=== PATIENT | female | born 1985 | race Caucasian/White ===

== ENCOUNTER 2024-02-12 18:49 | Outpatient (CLI) | payer BC, SELFPAY ==
[2024-02-19 15:34] LABS: Anti Mullerian Hormone (AMH) 7.72
== END 2024-02-12 23:59 ==
LOC: LAB.DROPOF 18:49
PROVIDERS: PCP Obstetrics & Gynecology; Visit Provider Obstetrics & Gynecology
DX: E28.2 Polycystic ovarian syndrome (principal)
CPT/HCPCS: 82397

== ENCOUNTER 2024-02-19 15:45 | Outpatient (CLI) | payer BC, SELFPAY ==
[2024-02-19 16:50] LABS: Hemoglobin A1C 5.1 % (4.0-6.0)
[2024-02-20 10:19] LABS: Rapid Plasma Reagin Ab Titer Non Reactive titer (NonRea<1:1); Rubella Antibodies, IgG 1.96 index (Immune >0.99); Varicella Zoster IgG 534 index (Immune >165)
[2024-02-20 18:10] LABS: HIV Screen 4th Generation wRfx Non Reactive (Non Reactive)
[2024-02-21 09:46] LABS: Hepatitis B Surface Antigen Negative
[2024-02-21 09:47] LABS: Hepatitis C Antibody Non Reactive
== END 2024-02-19 23:59 ==
PROVIDERS: Visit Provider Obstetrics & Gynecology
DX: Z31.69 Encounter for other general counseling and advice on procreation (principal)
CPT/HCPCS: 83036; 86593; 86703; 86762; 86787; 86850; 87340; 87380; G0432

== ENCOUNTER 2024-11-21 09:50 | Outpatient (CLI) | payer BC, SELFPAY ==
--- NOTE | 2024-11-21 10:02 | US_ITS ---
PROCEDURE: US TRANSVAGINAL CLINICAL INDICATION: Follicle Scan COMPARISON: No exams were available for comparison FINDINGS: Transvaginal sonographic images of the pelvis were obtained. UTERUS: 6.1 cm x 3.9 cmx 2.6 cm anteverted with a combined endometrial thickness of 2.1mm. LEFT OVARY: 3.7 cmx3.0cmx2.1cm with a volume of 12.2ml. The left ovary appears polycystic with multiple small peripheral follicles. Follicle 1. 0.67 cm Follicle 2. 0.82 cm Follicle 3. 0.65 cm Follicle 4. 0.48 cm Follicle 5. 0.52 cm Follicle 6. 0.61 cm Follicle 7. 0.65 cm Follicle 8. 0.48 cm Follicle 9. 0.56 cm Follicle 10. 0.60 cm Follicle 11. 0.44 cm Follicle 12. 0.86 cm Follicle 13. 0.63 cm Follicle 14. 0.62 cm Follicle 15. 0.81 cm Follicle 16. 0.69 cm RIGHT OVARY: 3.9 cmx 2.9 cmx1.8 cm with a volume of 10.7ml. Follicle 1. 0.51 cm Follicle 2. 0.79 cm Follicle 3. 0.29 cm Follicle 4. 0.57 cm Follicle 5. 0.46 cm Follicle 6. 0.34 cm Follicle 7. 0.47 cm Follicle 8. 0.82 cm Follicle 9. 0.53 cm Follicle 10. 0.38 cm Follicle 11. 0.61 cm Follicle 12. 0.70 cm Follicle 13. 0.40 cm Follicle 14. 0.43 cm Follicle 15. 0.58 cm There is a cyst within the right ovary that has internal echoes. It measures 6.0 cm x 3.5 cm x 4.9 cm There are 2 mural nodules consistent with Rokitansky nodules. Likely dermoid cyst. Both ovaries are seen and appear polycystic. Doppler flow to both ovaries are seen. There is no fluid in the cul-de-sac. IMPRESSION: 1. Anteverted uterus normal in shape and size. The endometrium is thin measuring 2.1 mm. 2. Both ovaries are seen and appear polycystic. There are multiple follicles on each ovary. 3. Within the right ovary is a 6 cm cyst with internal echoes and 2 Rokitansky nodules. Appears to be a dermoid cyst. 4. No fluid in the cul-de-sac. Dictated by: Niko Grissom MD 11/22/2024 07:59 Niko Grissom MD in OV 11/22/2024 07:59
[2024-11-21 10:31] LABS: Hematocrit 38.6 % (37.0-47.0); Mean Corpuscular HGB Conc 33.7 g/dL (31.8-35.4); Mean Corpuscular Hemoglobin 31.6 pg (27.0-31.2); Mean Corpuscular Volume 93.7 fl (81-99); Red Blood Count 4.12 M/mm3 (4.20-5.40); Red Cell Distribution Width 11.1 % (11.5-17.5); White Blood Count 4.7 K/mm3 (4.8-10.8)
[2024-11-21 10:32] LABS: Lymphocytes % 43.6 % (10-50); Mean Platelet Volume 9.6 fl (7.4-10.4); Monocytes % 6.3 % (1.7-9.3); Platelet Count 338 K/mm3 (142-424)
[2024-11-21 10:38] LABS: Basophils # 0.1 K/mm3 (0-0.2); Basophils % 1.1 % (0.1-2.0); Eosinophils # 0.2 K/mm3 (0.0-0.4); Lymphocytes # 2.1 K/mm3 (0.7-4.5); Monocytes # 0.3 K/mm3 (0.1-1.0); Neutrophils # 2.1 K/mm3 (1.8-7.8)
[2024-11-21 11:06] LABS: Alanine Aminotransferase 17 U/L (12-78); Albumin Level 4.2 g/dl (3.5-5.0); Albumin/Globulin Ratio 1.9 (1.1-1.8); Alkaline Phosphatase 44 U/L (38-126); Aspartate Amino Transferase 26 U/L (14-36); Bilirubin,Total 0.6 mg/dl (0.2-1.3); Blood Urea Nitrogen 14 mg/dl (7-17); Calcium 9.4 mg/dl (8.4-10.2); Carbon Dioxide 28 mmol/L (22.0-30.0); Chloride 107 mmol/L (98-107); Estimated Glomerular Filt Rate 80 ml/min (>60); GFR (African American) 97 ML/MIN (>60); Globulin 2.2 g/dL (1.3-3.2); Glucose 71 mg/dl (74-100); Sodium 138 mmol/L (136-145); Total Protein,Serum 6.4 g/dl (6.3-8.2)
[2024-11-21 11:08] LABS: Anion Gap 7.2 mEq/L (5-15); Potassium 4.2 mmoL/L (3.5-5.1)
[2024-11-21 11:44] LABS: Thyroid Stimulating Hormone 1.17 uIU/mL (0.465-4.68)
[2024-11-22 08:12] LABS: Estradiol 54.1 pg/mL (.); FSH 7.4 mIU/mL (.); LH 13.5 mIU/mL (.); Progesterone 0.3 ng/mL (.)
[2024-11-27 23:07] LABS: Anti Mullerian Hormone (AMH) 11.3 ng/mL (.)
== END 2024-11-21 23:59 | disposition home or self-care (01) ==
PROVIDERS: Visit Provider Obstetrics & Gynecology
DX: N93.9 Abnormal uterine and vaginal bleeding, unspecified (principal); N92.6 Irregular menstruation, unspecified; E28.9 Ovarian dysfunction, unspecified; Z31.69 Encounter for other general counseling and advice on procreation
CPT/HCPCS: 36415; 76830; 80050; 80053; 82397; 82670; 83001; 83002; 84144; 84443; 85025; 86850

== ENCOUNTER 2025-04-20 15:47 | Outpatient (CLI) | payer BC, SELFPAY ==
--- NOTE | 2025-04-20 15:50 | US_ITS ---
PROCEDURE: US OB <= 14 WEEKS FETUS CLINICAL INDICATION: MONITOR EARLY BEFORE 8 WEEKS COMPARISON: US US TRANSVAGINAL from 11/21/2024 FINDINGS: Transvaginal sonographic images of the pelvis were obtained. From her last menstrual period she is 6weeks 4days. An intrauterine gestational sac is present with a pole with a crown-rump length of 0.6cm This correlates to a gestational age of 6weeks 3days. PHILL 12/10/2025 heart tones are present with an FHR of 123bpm. Yolk sac is noted. The yolk sac measures 5.0mm. The right ovary is seen. There is a complex cyst adjacent to the right ovary measuring 4.7 cm x 3.7 cm. It contains echogenic fluid as well as solid areas, likely Rokitansky nodules. Patient is known to have a dermoid cyst. The left ovary is seen and appears normal. There appears to be a 1.6 cm corpus luteum in the left ovary. There is no fluid in the cul-de-sac. IMPRESSION: 1. Viable embryo within the uterine cavity. There is a heart rate activity. 2. PHILL will remain 12/10/2025. 3. The right ovary contains a 4.7 cm complex cyst that is known to be a dermoid. The left ovary contains a corpus luteum. 4. No fluid in the cul-de-sac. Dictated by: Niko Grissom MD 04/20/2025 19:19 Niko Grissom MD in OV 04/20/2025 19:19
== END 2025-04-20 23:59 | disposition home or self-care (01) ==
LOC: RAD 15:48
PROVIDERS: PCP Obstetrics & Gynecology Reproductive Endocrinology; Visit Provider Obstetrics & Gynecology Reproductive Endocrinology
DX: O99.891 Other specified diseases and conditions complicating pregnancy (principal); O34.81 Maternal care for other abnormalities of pelvic organs, first trimester; D27.0 Benign neoplasm of right ovary; N83.12 Corpus luteum cyst of left ovary; Z3A.01 Less than 8 weeks gestation of pregnancy
CPT/HCPCS: 76801

== ENCOUNTER 2025-04-27 15:34 | Outpatient (CLI) | payer BC, SELFPAY ==
--- NOTE | 2025-04-27 15:37 | US_ITS ---
PROCEDURE: US OB <= 14 WEEKS FETUS CLINICAL INDICATION: MONITOR EARLY BEFORE 14 WEEKS COMPARISON: US US TRANSVAGINAL from 11/21/2024 US US OB <= 14 WEEKS FETUS from 04/20/2025 FINDINGS: Transvaginal sonographic images of the pelvis were obtained. From her last menstrual period she is 7weeks 4days. An intrauterine gestational sac is present with a pole with a crown-rump length of 1.47cm This correlates to a gestational age of 7weeks 6days. PHILL will remain 12/08/2025 heart tones are present with an FHR of 167bpm. Yolk sac is noted. The yolk sac measures 6.1mm. The right ovary is seen and appears enlarged. The right ovary is enlarged measuring 5.6 cm x 3.4 cm x 5.0 cm. She is known to have a dermoid cyst and there are Rokitansky nodules seen within the complex mass in the right ovary. There continues to be particulate matter within the cyst. The left ovary is seen and appears normal. There is a resolving corpus luteum. There is no fluid in the cul-de-sac. IMPRESSION: 1. Viable embryo within the uterine cavity. There has been good interval growth in the last week. Heart rate activity is seen. Average ultrasound age 7 weeks 6 days PHILL will remain 12/08/2025. 2. The left ovary contains a resolving corpus luteum. The right ovary is enlarged contains a dermoid cyst. 3. No fluid in the cul-de-sac. Dictated by: Niko Grissom MD 04/27/2025 20:23 Niko Grissom MD in OV 04/27/2025 20:23
== END 2025-04-27 23:59 | disposition home or self-care (01) ==
LOC: RAD 15:35
PROVIDERS: PCP Obstetrics & Gynecology Reproductive Endocrinology; Visit Provider Obstetrics & Gynecology Reproductive Endocrinology
DX: O99.891 Other specified diseases and conditions complicating pregnancy (principal); O34.81 Maternal care for other abnormalities of pelvic organs, first trimester; D27.0 Benign neoplasm of right ovary; N83.12 Corpus luteum cyst of left ovary; Z3A.01 Less than 8 weeks gestation of pregnancy
CPT/HCPCS: 76801

== ENCOUNTER 2025-05-05 15:47 | Outpatient (CLI) | payer BC, SELFPAY ==
--- OUTSIDE RECORDS SUMMARY | 2025-05-05 15:49 | XMS_ITS | Clinical Summary ---
Author Organization [facility] Address [address] [place] [id number] Care Team Providers Care Band Saw Marker Name Role Phone Pcp, No Primary Care Provider [phone] Source Comments This information has been disclosed to you from confidential records protectedfrom disclosure by state law. You shall make no further disclosure of thisinformation without the specific, written, and informed release of theindividual to whom it pertains, or as otherwise permitted by law. A generalauthorization for the release of medical or other information is not sufficientfor the purposes of therelease of HIV test results or diagnoses. [id number] Allergies No known active allergies Medications vit,calc76/iro n/folic (PNV 29-1 ORAL) Take by mouth. Acti ve coenzyme Q-10 30 mg capsule Take 1 capsule (30 mg total) by mouth 3 times a day. Active vit B complex no.12/niacin,B 3, (VITAMIN B COMPLEX NO.12-NIACIN ORAL) Take by mouth. Activ e melatonin 1 mg Tab Take by mouth. Activ e vitamin E 200 UNIT capsule Take 1 capsule (200 Units total) by mouth daily. Active ascorbic acid, vitamin C, (VITAMIN C) 100 MG tablet Take 1 tablet (100 mg total) by mouth daily. Active sertraline (ZOLOFT) 50 MG tablet Take 1 tablet (50 mg total) by mouth daily. Active follitropin beta (FOLLISTIM AQ) 300 unit/0.36 mL Crtg Inject 100 Units subcutaneously daily. 2.52 mL 2 4 Active ganirelix 250 mcg/0.5 mL Syrg Inject 250 mcg subcutaneously daily. 3 mL 2 4 Active busPIRone (BUSPAR) 10 MG tablet Take 1 tablet (10 mg total) by mouth 2 times a day. Active menotropins (MENOPUR) 75 unit SolR Inject subcutaneously. Active INOSITOL ORAL Take by mouth. A ctive alpha lipoic acid 50 mg Cap Take by mouth. Active cetrorelix (CETROTIDE) 0.25 mg Kit Inject subcutaneously. Active cabergoline (DOSTINEX) 0.5 mg tablet Take 1 tablet (0.5 mg total) by mouth daily. 8 tablet 4 Active estradioL (ESTRACE) 2 MG tablet Take 1 tablet (2 mg total) by mouth in the morning and at bedtime. 60 tablet 3 4 Active letrozole (FEMARA) 2.5 mg tablet Take 2 tablets (5 mg total) by mouth daily. 10 tablet 4 Active progesterone (PROMETRIUM) 200 MG capsule Insert 400 mg vaginally every 12 hours. 60 capsule 3 4 Active enoxaparin (LOVENOX) 40 mg/0.4 mL Syrg Inject 0.4 mLs (40 mg total) subcutaneously daily. 12 mL 3 4 Active doxycycline (MONODOX) 100 MG capsule Take 1 capsule (100 mg total) by mouth 2 times a day. 10 capsule 4 Active letrozole (FEMARA) 2.5 mg tablet Take 2 tablets (5 mg total) by mouth daily. 10 tablet 4 Active letrozole (FEMARA) 2.5 mg tablet Take 3 tablets (7.5 mg total) by mouth daily. 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 [x] Type & Screen (09/23/22 from [facility] records) [x] ABO/ABS (02/19/2024) [x] CBC (11/27/2023) [x] CMP (11/27/2023) [x] AMH (02/12/2024-7.72) [x] Prolactin 13.8 (11/27/2023) [x] TSH: 1.24 Free T4: 1.12 (11/27/2023) [x] HgbA1c (02/19/2024-5.1) [x] Rubella/varicella (02/19/2024) [x] STDs (02/19/2024) [x] Cavity assessment (Waived per Dr. Shelley SIS 10/29/22 at [facility] wn) [x] TT 03/11/2024 (Depth: 7.5 Position: RV Comments: Need stylet) Partner: Nathan Bui : 08/14/1981 [x] STDs negative x 4 (02/24/2024) [x] Genetics-scanned into chart [x] Embryo onsite Social History Tobacco Use Types Packs/Day Years Used Date Smoking Tobacco: Never Smokeless Tobacco: Never Tobacco Cessation:Counseling Given: Not Answered Alcohol Use Standard Drinks/Week Comments Not Currently 0 (1 standard drink = 0.6 oz pur e alcohol) Comments No Sex and Gender Information Value Date Recorded Sex Assigned at Not on file Legal Sex Female 4:16 PM EST Gender Identity Not on file Sexual Orientation Not on file Last Filed Vital Signs Vital Sign Reading Time Taken Comments Blood Pressure 124/78 08/30/2024 8:33 AM EDT Pulse 80 08/30/2024 8:33 AM EDT Temperature 36.5 C (97.7 F) 03/20/2024 8:58 AM EDT Respiratory Rate 14 03/22/2024 9:30 AM EDT Oxygen Saturation 99% 08/30/2024 8:33 AM EDT Inhaled Oxygen Concentration 99% 08/30/2024 8 :33 AM EDT Weight 66.2 kg (146 lb) 08/30/2024 8:33 AM EDT Height 172.7 cm (5' 8 ) 08/30/2024 8:33 AM EDT Body Mass Index 22.2 08/30/2024 8:33 AM EDT Plan of Treatment Health Maintenance Due Date Last Done Comments Hepatitis C Screening ([facility]) 1986 Depression Screening 02/05/2004 Cervical Cancer Screening/Pa p Smear (MyChart) 02/05/2016 Immunization: DTaP/Tdap/Td ( 3 - Td or Tdap) 07/21/2018 07/21/2008, 11/09/2002 Immunization: COVID-19 ( season) 2024 Immunization: Influenza (MyChart) (Season Ended) 2025 Immunization: Hepatitis B Completed 2002, 02/09/2003, 11/09/2002 HIV Screening Completed 02/19/2024 Immunization: Pneumococcal Aged Out N o longer eligible based on patient's age to complete this topic Procedures Procedure Name Priority Date/Time Associated Diagnosis Comments HIV AB, HIV 1/2, EIA, WITH REFLEXES Routine 02/19/2024 from Last 3 Months or Most Recently Relevant to Health Maintenance Results * HIV AB, HIV 1/2, EIA, with Reflexes (02/19/2024) HIV 1/2 EIA Ab Screen NR us Historical Provider LAB BLOOD ORDERABLES Naomi l Result from Last 3 Months or Most Recently Relevant to Health Maintenance Insurance Care Teams Band Saw Marker Relationship Specialty Start Date End Date Pcp, No No Address PCP - General 01/04/24
--- OUTSIDE RECORDS SUMMARY | 2025-05-05 15:49 | XMS_ITS | Encounter Summary ---
Author Organization [place] [address] Care Team Providers Care Cellular Equipment Repairer Name Role Phone Yessy Black Primary Care Provider [phone] Larissa Butler LCSW Unavailable Unavailable Reason for Visit * Reason Onset Date Comments Paperwork/forms 12/14/2024 Encounter Details Date Type Department Care Team (Late Contact Info) Description 12/14/2024 Telephone [facility] [address] [place] [address] Sarah Morales, DO [address] [place] [address] Paperwork/forms Social History Tobacco Use Types Packs/Day Years Used Date Smoking Tobacco: Former Cigarettes 0.3 12.7 0 11/30/1999 - 07/31/2012 Passive Smoke Exposure: Past Smokeless Tobacco: Never Alcohol Use Standard Drinks/Week Comments Not Currently 0 (1 standard drink = 0.6 oz pur e alcohol) 1x/mo [facility] Utilities Answer Date Recorded In the past 12 months has [employer], gas, oil, or water company threatened to shut off services in your home? No 02/02/2024 Social Connection and Isolat ion Panel [NHANES] Answer Date Recorded In a typical week, how many times do you talk on the phone with family, friends, or neighbors? More than three times a week 02/02/2024 How often do you get togethe r with friends or relatives? More than three times a week 02/02/2024 How often do you attend [facility] or oriental orthodox services? More than 4 times per year 02/02/2024 Do you belong to any clubs o r organizations such as mu-ism groups, unions, fraternal or athletic groups, or school groups? No 02/02/2024 How often do you attend meet ings of the clubs or organizations you belong to? Never 02/02/2024 Are you , , di vorced, , never , or living with a partner? 02/02/2024 AUDIT-C Answer Date Recorded Q1: How often do you have a drink containing alcohol? Never 02/02/2024 Q2: How many drinks containi ng alcohol do you have on a typical day when you are drinking? Patient does not drink Q3: How often do you have si x or more drinks on one occasion? Never 02/02/2024 Overall Financial Resource Strain (CARDIA) Answe r Date Recorded How hard is it for you to pa y for the very basics like food, housing, medical care, and heating? Not hard at all 02/02/2024 PHQ-2 Answer Date Recorded PHQ-2 Total Score 3 02/02/2024 [facility] - Occupational Stress Questionnaire Answer Date Recorded Do you feel stress - tense, restless, nervous, or anxious, or unable to sleep at night because your mind is troubled all the time - these days? Very much 02/02/2024 Exercise Vital Sign Answer Date Recorde d On average, how many days pe r week do you engage in moderate to strenuous exercise (like a brisk walk)? 5 days 02/02/2024 On average, how many minutes do you engage in exercise at this level? 30 min 02/02/2024 Hunger Vital Sign Answer Date Recorded Within the past 12 months, y ou worried that your food would run out before you got the money to buy more. Never true 02/02/20 24 Within the past 12 months, t he food you bought just didn't last and you didn't have money to get more. Never true 02/02/2024 PRAPARE - Transportation Answer Date Re corded In the past 12 months, has l ack of transportation kept you from medical appointments or from getting medications? No 03/2024 In the past 12 months, has l ack of transportation kept you from meetings, work, or from getting things needed for daily living? No 02/02/2024 Housing Stability Vital Sign Answer Jeovany e Recorded In the last 12 months, was t here a time when you were not able to pay the mortgage or rent on time? No 02/02/2024 In the last 12 months, how many places have you lived? 1 02/02/2024 In the last 12 months, was t here a time when you did not have a steady place to sleep or slept in a residential (including now)? No 02/02/2024 Sexually Active Control Partners Comments Yes Male Comments No Sex and Gender Information Value Date Recorded Sex Assigned at Not on file Legal Sex Female 7:19 AM EDT Gender Identity Not on file Sexual Orientation Not on file documented as of this encounter Functional Status * Is the person deaf or does he/she have serious difficulty hearing? Answer Date of Assessment Author No 01/19/2024 2:36 PM Mihai Estrada LPN * Is the person blind or does he/she have serious difficulty seeing even when wearing glasses? Answer Date of Assessment Author No 01/19/2024 2:36 PM Mihai Estrada LPN * Does this person have serious difficulty walking or climbing stairs? Answer Date of Assessment Author No 01/19/2024 2:36 PM Mihai Estrada LPN * Does this person have difficulty dressing or bathing? Answer Date of Assessment Author No 01/19/2024 2:36 PM Mihai Estrada LPN * Because of a physical, mental or emotional condition, does this person have difficulty doing errands alone such as visiting a doctor's office or shopping? Answer Date of Assessment Author No 01/19/2024 2:36 PM Mihai Estrada LPN documented as of this encounter Mental Status * Because of a physical, mental or emotional condition, does this person have serious difficulty concentrating, remembering or making decisions? Answer Entry Date Author No 01/19/2024 2:36 PM Mihai Estrada LPN documented in this encounter Miscellaneous Notes * Telephone Encounter - Chato Denton RN - 05/02/2025 3:57 PM EDT [place] nothing else concerning pt's job and paperwork, I went ahead and shredded form. If needed in the future, pt can supply another form to us. * Telephone Encounter - Yessy Black DO - 12/26/2024 1:45 PM EST noted * Telephone Encounter - Chato Denton RN - 12/23/2024 9:44 AM EST Pt replied to my message. She states that she is still working and will let us know if she needs form completed in the upcoming future. I will keep pt's paperwork at my desk ready to be completed if she needs it. * Telephone Encounter - Chato Denton RN - 12/23/2024 8:32 AM EST I sent pt another [employer] message asking for dates so that I can work on her paperwork. * Telephone Encounter - Chato Denton RN - 12/14/2024 1:31 PM EST Received FMLA/STD (which?) received from pt's employer by fax. Sent pt a [employer] message asking her to send to me the specific start date/stop date for the time off of work that she feels she currently needs. documented in this encounter Plan of Treatment Not on file documented as of this encounter Goals Goal Patient Goal Type Associated Problems Recent Progress Patient-Stated? Author Maintain a healthy diet, exercise regularly and maintain an ideal body weight General No Elvia Morales MD Stay Tobacco Free Lifestyle No Elvia Morales MD documented as of this encounter Visit Diagnoses Not on filedocumented in this encounter Additional Health Concerns Assessment Noted Time PHQ-9 Depression Total Score: 16 024 1:27 PM EST PHQ-2 Depression Total Score: 3 02/02/20 24 1:27 PM EST documented as of this encounter Care Teams Cellular Equipment Repairer Relationship Specialty Start Date End Date Yessy Black DO [address] [place] [address] PCP - General Family Medicine 08/11/23 Larissa Butler LCSW Electrical Fitter 12/13/24 12/26/24 documented as of this encounter
--- OUTSIDE RECORDS SUMMARY | 2025-05-05 15:49 | XMS_ITS | Clinical Summary ---
Author Organization [facility] Address [address] [place] [address] Phone Care Team Providers Care Inker Name Role Phone Yessy Black DO Primary Care Provider [phone] Allergies No known active allergies Medications vit no.124/iron/foli c ( VITAMIN ORAL) Take 1 Tablet by mouth daily. Active VITAMIN B COMPLEX ORAL Take 1 Tablet by mouth daily. Active VITAMIN E, BULK, MISC Take 200 Units by mouth daily. Active ascorbic acid, vitamin C, (VITAMIN C) 100 mg Oral Tablet Take 100 mg by mouth daily. Active Melatonin 1 mg Oral Tablet Take 1 Tablet by mouth nightly. Active co-enzyme Q-10 30 mg Oral Capsule Take 30 mg by mouth daily. Active sertraline (ZOLOFT) 50 mg Oral TabletIndication s:Mild episode of recurrent major depressive disorder TAKE 1 TABLET BY MOUTH EVERY DAY 30 Tablet 11/14/2024 Active busPIRone (BUSPAR) 10 mg Oral TabletIndication s:Other social stressor,Anxiety Take 1 Tablet by mouth 2 times daily. 180 Tablet 2 12/12/2024 Active Active Problems Patient Care Coordination No te Formatting of this note migh t be different from the original. Care gap audit completed by Alicia Panda RN on 10/08/2023. Problem Noted Date Diagnosed Date Dysmenorrhea 01/01/2024 Procreative management 01/01/2024 Sensorineural hearing loss, unilateral, left ear, with unrestricted hearing on the contralateral side 02/19/2018 Abnormal auditory perception of right ear 2017 Mild episode of recurrent major depressive disor zak 04/30/2011 Immunizations Immunization Administration Dates Next Due Hepatitis B, Ped/Adol 07/05/2003,02/09/2003,10/30 MMR 06/12/1997 Td (Adult), Absorbed 11/09/2002 Tdap 07/21/2008 Surgical History Surgery Date Site/Laterality Comments WISDOM TOOTH EXTRACTION 09/2011 Medical History Medical History Date Comments Depression Family History Medical History Relation Name Comments Substance Abuse Brother 1 Carlos heroin OD Alcohol Abuse Brother 2 Ariel Alcohol Abuse Brother 3 Guillermo testicular cancer Brother 3 Guillermo Alcohol Abuse Father Atrial fibrillation Father Heart Disease Father CABG Leukemia Father High Cholesterol Mother Hypertension Mother Kidney Disease Mother CKD 3 Substance Abuse Mother crack, cocai ne Thyroid Disease Mother Alcohol Abuse Sister 1 María in remission Substance Abuse Sister 1 María in remission Substance Abuse Sister 2 Nasreen hepatitis C Sister 2 Nasreen Substance Abuse Sister 3 Kylie Thyroid Disease Sister 3 Kylie Relation Name Status Comments Brother 1 Carlos (Age 25) Brother 2 Ariel Alive half brother Brother 3 Guillermo Alive Father Alive Maternal Grandfather Maternal Grandmother Mother Alive Paternal Grandfather Paternal Grandmother Sister 1 María Alive Sister 2 Nasreen Alive Sister 3 Kylie Alive half sister Social History Tobacco Use Types Packs/Day Years Used Date Smoking Tobacco: Former Cigarettes 0.3 12.7 0 11/30/1999 - 07/31/2012 Passive Smoke Exposure: Past Smokeless Tobacco: Never Tobacco Cessation:Counseling Given: Not Answered Alcohol Use Standard Drinks/Week Comments Not Currently 0 (1 standard drink = 0.6 oz pur e alcohol) 1x/mo [facility] Utilities Answer Date Recorded In the past 12 months has [employer], [employer], oil, or water [employer] threatened to shut off services in your [...] week 02/02/2024 How often do you attend [facility] or islam services? More than 4 times per year 02/02/2024 Do you belong to any clubs o r organizations such as anabaptism groups, unions, fraternal or athletic groups, or [...] Date Recorded PHQ-2 Total Score 3 02/02/2024 [facility] - Occupational [...] place to sleep or slept in a chcf (including now)? No 02/02/2024 Sexually Active Control Partners Comments Yes Male Comments No Sex and Gender Information Value Date Recorded Sex Assigned at Not on file Legal Sex Female 7:19 AM EDT Gender Identity Not on file Sexual Orientation Not on file Obstetrics History Last Filed Vital Signs Vital Sign Reading Time Taken Comments Blood Pressure 110/80 02/16/2024 9:41 AM EDT Pulse 62 02/16/2024 9:41 AM EDT Temperature 36.2 C (97.1 F) 02/16/2024 9:41 AM EDT Respiratory Rate 16 01/19/2024 2:38 PM EST Oxygen Saturation 98% 02/16/2024 9:41 AM EDT Inhaled Oxygen Concentration - - Weight 65.9 kg (145 lb 3.2 oz) 02/16/2024 9:41 A M EDT Height 172.7 cm (5' 8 ) 02/16/2024 9:41 AM EDT Body Mass Index 22.08 02/16/2024 9:41 AM EDT Plan of Treatment Health Maintenance Due Date Last Done Comments HPV/Pap Cotest 02/05/2016 DTaP/TDaP/Td (3 - Td or Tdap) 07/21/2018, 11/09/2002 Annual Wellness Exam 10/22/2023 10/22/2022, 05/18/2015 COVID-19 Vaccine (2023-2 5 season) 2024 Influenza Vaccine (Season Ended) 2025 Cervical Cancer Screening 10/14/2026 Pap Smear 10/14/2026 10/14/2023, 12/13/2020, 04/30/2013 Hepatitis B Vaccine Completed 07/05/2003, 02/09/2003, 11/09/2002 Meningococcal B Vaccine Aged Out No l onger eligible based on patient's age to complete this topic Pneumococcal Vaccine 0-49 Aged Out No longer eligible based on patient's age to complete this topic Goals Goal Patient Goal Type Associated Problems Recent Progress Patient-Stated? Author Maintain a healthy diet, exercise regularly and maintain an ideal body weight General No Elvia Morales MD Stay Tobacco Free Lifestyle No Evlia Morales MD Procedures Procedure Name Priority Date/Time Associated Diagnosis Comments PAP SMEAR Routine 12/13/2020 from Last 3 Months or Most Recently Relevant to Health Maintenance Results * PAP SMEAR (12/13/2020) 12/13/2020 Impressions SEP OFFICE - 12/13/2020 Negative for intraepithelial lesion or malignancy. us [facility] Provider HEALTH MAINTENANCE Final Res ult SEP OFFICE from Last 3 Months or Most Recently Relevant to Health Maintenance Insurance [employer] PPO [employer] PPO Care Teams Inker Relationship Specialty Start Date End Date Yessy Black DO [address] [place] [address] PCP - General Family Medicine 08/11/23
--- NOTE | 2025-05-05 15:52 | US_ITS ---
PROCEDURE: US OB TRANSVAGINAL CLINICAL INDICATION: MONITOR EARLY COMPARISON: US US TRANSVAGINAL from 11/21/2024 US US OB <= 14 WEEKS FETUS from 04/20/2025 US US OB <= 14 WEEKS FETUS from 04/27/2025 FINDINGS: Transvaginal sonographic images of the pelvis were obtained. From her last menstrual period she is 8weeks 5days. An intrauterine gestational sac is present with a pole with a crown-rump length of 2.36cm This correlates to a gestational age of 9weeks 1day. PHILL 12/07/2025. heart tones are present with an FHR of 179bpm. Yolk sac is noted. The yolk sac measures 7.8 mm. The right ovary is seen. Within the right ovary is a dermoid cyst measuring 6.1 cm x 3.3 cm x 4.9 cm. There are Rokitansky nodules. There is particulate matter within the cyst. The left ovary is seen and appears normal. There continues to be a collapsing corpus luteum in the left ovary. There are multiple small peripheral follicles. There is no fluid in the cul-de-sac. IMPRESSION: 1. Viable embryo within the uterine cavity. Heart rate activity is seen. 2. [place]-rump length is 9 weeks 1 day and her PHILL will remain 12/10/2025. 3. There continues to be a large dermoid cyst in the right ovary. It has not grown appreciably in size. 4. No fluid in the cul-de-sac. Dictated by: Niko Grissom MD 05/05/2025 18:44 Niko Grissom MD in OV 05/05/2025 18:44
== END 2025-05-05 23:59 | disposition home or self-care (01) ==
LOC: RAD 15:48
PROVIDERS: PCP Obstetrics & Gynecology Reproductive Endocrinology; Visit Provider Obstetrics & Gynecology Reproductive Endocrinology
DX: O99.891 Other specified diseases and conditions complicating pregnancy (principal); D27.0 Benign neoplasm of right ovary; Z3A.08 8 weeks gestation of pregnancy
CPT/HCPCS: 76817

== ENCOUNTER 2025-05-10 15:04 | Outpatient (CLI) | payer BC, SELFPAY ==
--- OUTSIDE RECORDS SUMMARY | 2025-05-10 15:07 | XMS_ITS | Clinical Summary ---
Author Organization [facility] Address [address] [place] [address] Phone Care Team Providers Care Glove Parts Cutter Name Role Phone Yessy Black DO Primary Care Provider [phone] Allergies No known active allergies Medications vit [...] = 0.6 oz pur e alcohol) 1x/mo [place] Utilities Answer Date Recorded In the past 12 months has [employer], [employer], oil, or water [employer] threatened to shut off services in your [...] week 02/02/2024 How often do you attend [facility] or rastafari services? More than 4 times per year 02/02/2024 Do you belong to any clubs o r organizations such as zoroastrianism groups, unions, fraternal or athletic groups, or [...] Date Recorded PHQ-2 Total Score 3 02/02/2024 [facility] of Occupat ional Health - Occupational Stress [...] place to sleep or slept in a detention (including now)? No 02/02/2024 Sexually Active Control [...] Tobacco Free Lifestyle No Elvia Morales MD Procedures Procedure Name Priority Date/Time Associated Diagnosis Comments PAP SMEAR Routine 12/13/2020 from Last 3 Months or Most Recently Relevant to Health Maintenance Results * PAP SMEAR (12/13/2020) 12/13/2020 Impressions SEP OFFICE - 12/13/2020 Negative for intraepithelial lesion or malignancy. us [facility] Provider HEALTH MAINTENANCE Final Res ult SEP OFFICE from Last 3 Months or Most Recently Relevant to Health Maintenance Insurance [employer] PPO [employer]UTISTA PPO Care Teams Glove Parts Cutter Relationship Specialty Start Date End Date Yessy Black DO [address] [place] [address] PCP - General Family Medicine 08/11/23
--- OUTSIDE RECORDS SUMMARY | 2025-05-10 15:07 | XMS_ITS | Clinical Summary ---
Author Organization [facility] Address [address] [place] [address] Care Team Providers Care Black Ash Burner Operator Name Role Phone Pcp, No Primary Care Provider [phone] Source Comments This information has been disclosed [...] therelease of HIV test results or diagnoses. 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 [x] Type & Screen (09/23/22 from [facility] records) [x] ABO/ABS (02/19/2024) [x] CBC (11/27/2023) [x] CMP (11/27/2023) [x] AMH (02/12/2024-7.72) [x] Prolactin 13.8 (11/27/2023) [x] TSH: 1.24 Free T4: 1.12 (11/27/2023) [x] HgbA1c (02/19/2024-5.1) [x] Rubella/varicella (02/19/2024) [x] STDs (02/19/2024) [x] Cavity assessment (Waived per Dr. Shelley SIS 10/29/22 at [facility] wn) [x] TT 03/11/2024 (Depth: 7.5 Position: [...] Relevant to Health Maintenance Insurance Care Teams Black Ash Burner Operator Relationship Specialty Start Date End Date Pcp, No No Address PCP - General 01/04/24
--- OUTSIDE RECORDS SUMMARY | 2025-05-10 15:07 | XMS_ITS | Encounter Summary ---
Author Organization [facility] [address] Care Team Providers Care Shop Director Name Role Phone Yessy Black Primary Care Provider [phone] Larissa Butler LCSW Unavailable Unavailable Reason for Visit * Reason Onset Date Comments Paperwork/forms 12/14/2024 Encounter Details Date Type Department Care Team (Late Contact Info) Description 12/14/2024 Telephone [facility] [address] [place] [address] Sarah Morales, DO [address] [place] [address] Paperwork/forms Social History Tobacco Use Types Packs/Day Years Used Date Smoking Tobacco: Former Cigarettes 0.3 12.7 0 11/30/1999 - 07/31/2012 Passive Smoke Exposure: Past Smokeless Tobacco: Never Alcohol Use Standard Drinks/Week Comments Not Currently 0 (1 standard drink = 0.6 oz pur e alcohol) 1x/mo [facility] Utilities Answer Date Recorded In the past 12 months has [employer] electric, gas, oil, or water company threatened [...] week 02/02/2024 How often do you attend [facility] or caodaism services? More than 4 times per year 02/02/2024 Do you belong to any clubs o r organizations such as judaism groups, unions, fraternal or athletic groups, or [...] Date Recorded PHQ-2 Total Score 3 02/02/2024 [facility] of Occupat ional Health - Occupational [...] place to sleep or slept in a fpc (including now)? No 02/02/2024 Sexually Active Control [...] Denton RN - 05/02/2025 3:57 PM EDT [place] nothing else concerning pt's job and paperwork, [...] 8:32 AM EST I sent pt another [employer] message asking for dates so that I can work on her paperwork. * Telephone Encounter - Chato Denton RN - 12/14/2024 1:31 PM EST Received FMLA/STD (which?) received from pt's employer by fax. Sent pt a [employer] message asking her to send to me [...] documented as of this encounter Care Teams Shop Director Relationship Specialty Start Date End Date Yessy Black DO [address] [place] [address] PCP - General Family Medicine 08/11/23 Larissa Butler LCSW Cubing Machine Tender 12/13/24 12/26/24 documented as of this encounter
--- NOTE | 2025-05-10 15:09 | US_ITS ---
PROCEDURE: US OB TRANSVAGINAL CLINICAL INDICATION: 10 WEEK US COMPARISON: US US TRANSVAGINAL from 11/21/2024 US US OB <= 14 WEEKS FETUS from 04/20/2025 US US OB <= 14 WEEKS FETUS from 04/27/2025 US US OB TRANSVAGINAL from 05/05/2025 FINDINGS: Transvaginal sonographic images of the pelvis were obtained. From her last menstrual period she is 9weeks 3days. An intrauterine gestational sac is present with a pole with a crown-rump length of 2.92cm This correlates to a gestational age of 9weeks 5days. heart tones are present with an FHR of 176bpm. Yolk sac is noted. The yolk sac measures 8.0mm. The right ovary is seen and appears normal. Continues to be a 5.8 cm dermoid cyst in the right ovary. Rokitansky nodules are seen. The fluid appears cloudy in contains particulate matter. The left ovary is seen and appears normal. There are multiple small follicles within the left ovary. There appears to be a collapsing corpus luteum in the left ovary. There is no fluid in the cul-de-sac. IMPRESSION: 1. Viable embryo within the uterine cavity. There has been good interval growth since her last ultrasound week ago. The size and dates are congruent with her last menstrual period. 2. A yolk sac is seen and measures 8.0 mm. 3. Amnion and chorion are now seen. 4. The left ovary contains multiple small follicles and likely a corpus luteum. 5. The right ovary continues to contain a 5.8 cm dermoid with a Rokitansky nodules and particulate cloudy fluid. Dictated by: Niko Grissom MD 05/10/2025 15:49 Niko Grissom MD in OV 05/10/2025 15:49
== END 2025-05-10 23:59 | disposition home or self-care (01) ==
LOC: RAD 15:05
PROVIDERS: PCP Obstetrics & Gynecology Reproductive Endocrinology; Visit Provider Obstetrics & Gynecology Reproductive Endocrinology
DX: O99.891 Other specified diseases and conditions complicating pregnancy (principal); O34.81 Maternal care for other abnormalities of pelvic organs, first trimester; D27.0 Benign neoplasm of right ovary; N83.02 Follicular cyst of left ovary; Z3A.09 9 weeks gestation of pregnancy
CPT/HCPCS: 76817

== ENCOUNTER 2025-05-24 10:00 | Outpatient (CLI) | payer BC, SELFPAY ==
--- OUTSIDE RECORDS SUMMARY | 2025-05-26 10:04 | XMS_ITS | Encounter Summary ---
Author Organization [place] [address] Care Team Providers Care Behavioral Health Aide Name Role Phone Yessy Black Primary Care Provider [phone] Larissa Butler LCSW Unavailable Unavailable Reason for Visit * Reason Onset Date Comments Paperwork/forms 12/14/2024 Encounter Details Date Type Department Care Team (Late Contact Info) Description 12/14/2024 Telephone [facility] [address] [place] [address] Sarah Morales, DO [address] [place] [address] Paperwork/forms Social History Tobacco Use Types Packs/Day Years Used Date Smoking Tobacco: Former Cigarettes 0.3 12.7 0 11/30/1999 - 07/31/2012 Passive Smoke Exposure: Past Smokeless Tobacco: Never Alcohol Use Standard Drinks/Week Comments Not Currently 0 (1 standard drink = 0.6 oz pur e alcohol) 1x/mo [facility] Utilities Answer Date Recorded In the past 12 months has [employer] electric, gas, oil, or water company threatened [...] How often do you attend [facility] or judaism services? More than 4 times per year 02/02/2024 Do you belong to any clubs o r organizations such as spiritism groups, unions, fraternal or athletic groups, or [...] Date Recorded PHQ-2 Total Score 3 02/02/2024 [facility] of Occupat ional Health - Occupational [...] Denton RN - 05/02/2025 3:57 PM EDT [place] nothing else concerning pt's job and paperwork, [...] 8:32 AM EST I sent pt another [employer] message asking for dates so that I can work on her paperwork. * Telephone Encounter - Chato Denton RN - 12/14/2024 1:31 PM EST Received FMLA/STD (which?) received from pt's employer by fax. Sent pt a [employer] message asking her to send to me [...] documented as of this encounter Care Teams Behavioral Health Aide Relationship Specialty Start Date End Date Yessy Black DO [address] [place] [address] PCP - General Family Medicine 08/11/23 Larissa Butler LCSW [place] 12/13/24 12/26/24 documented as of this encounter
--- OUTSIDE RECORDS SUMMARY | 2025-05-26 10:04 | XMS_ITS | Clinical Summary ---
Author Organization [facility] Address [address] [place] [address] Care Team Providers Care Financial Legal Assistant Name Role Phone Pcp, No Primary Care Provider [phone] Source Comments This information has been disclosed [...] therelease of HIV test results or diagnoses. 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 [x] Type & Screen (09/23/22 from [facility] records) [x] ABO/ABS (02/19/2024) [x] CBC (11/27/2023) [x] CMP (11/27/2023) [x] AMH (02/12/2024-7.72) [x] Prolactin 13.8 (11/27/2023) [x] TSH: 1.24 Free T4: 1.12 (11/27/2023) [x] HgbA1c (02/19/2024-5.1) [x] Rubella/varicella (02/19/2024) [x] STDs (02/19/2024) [x] Cavity assessment (Waived per Dr. Shelley SIS 10/29/22 at [facility] wn) [x] TT 03/11/2024 (Depth: 7.5 [...] Relevant to Health Maintenance Insurance Care Teams Financial Legal Assistant Relationship Specialty Start Date End Date Pcp, No No Address PCP - General 01/04/24
--- OUTSIDE RECORDS SUMMARY | 2025-05-26 10:04 | XMS_ITS | Clinical Summary ---
Author Organization [facility] Address [address] [place] [address] Phone Care Team Providers Care Environmental Health Physician Name Role Phone Yessy Black DO Primary Care Provider Allergies No known active allergies Medications vit [...] = 0.6 oz pur e alcohol) 1x/mo [employer] Utilities Answer Date Recorded In the past 12 months has [employer], [employer], oil, or water [employer] threatened to shut off services in your [...] week 02/02/2024 How often do you attend [facility] or yazidi services? More than 4 times per year 02/02/2024 Do you belong to any clubs o r organizations such as orthodoxy groups, unions, fraternal or athletic groups, or [...] Date Recorded PHQ-2 Total Score 3 02/02/2024 [facility] of Occupat ional Health - Occupational [...] place to sleep or slept in a senior care (including now)? No 02/02/2024 Sexually Active Control [...] Negative for intraepithelial lesion or malignancy. us [facility] Provider HEALTH MAINTENANCE Final Res ult SEP OFFICE from Last 3 Months or Most Recently Relevant to Health Maintenance Insurance [employer] PPO [employer]UTISTA PPO Care Teams Environmental Health Physician Relationship Specialty Start Date End Date Yessy Black DO [address] [place] [address] PCP - General Family Medicine 08/11/23
[2025-05-28 14:22] LABS: Neisseria gonorrhoeae, NAA Negative (Negative)
== END 2025-05-24 23:59 | disposition home or self-care (01) ==
LOC: LAB.DROPOF 05-26 10:00
PROVIDERS: PCP Obstetrics & Gynecology; Visit Provider Obstetrics & Gynecology
DX: Z34.81 Encounter for supervision of other normal pregnancy, first trimester (principal); Z3A.00 Weeks of gestation of pregnancy not specified
CPT/HCPCS: 87491; 87591

== ENCOUNTER 2025-05-30 14:43 | Outpatient (CLI) | payer BC, SELFPAY ==
--- OUTSIDE RECORDS SUMMARY | 2025-05-30 14:45 | XMS_ITS | Clinical Summary ---
Author Organization [facility] Address [address] [place] [address] Care Team Providers Care Kickboxing Instructor Name Role Phone Pcp, No Primary Care Provider [phone] Source Comments This information has been disclosed [...] therelease of HIV test results or diagnoses. 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 [x] Type & Screen (09/23/22 from [facility] records) [x] ABO/ABS (02/19/2024) [x] CBC (11/27/2023) [x] CMP (11/27/2023) [x] AMH (02/12/2024-7.72) [x] Prolactin 13.8 (11/27/2023) [x] TSH: 1.24 Free T4: 1.12 (11/27/2023) [x] HgbA1c (02/19/2024-5.1) [x] Rubella/varicella (02/19/2024) [x] STDs (02/19/2024) [x] Cavity assessment (Waived per Dr. Shelley SIS 10/29/22 at [facility] wn) [x] TT 03/11/2024 (Depth: 7.5 Position: [...] Relevant to Health Maintenance Insurance Care Teams Kickboxing Instructor Relationship Specialty Start Date End Date Pcp, No No Address PCP - General 01/04/24
--- OUTSIDE RECORDS SUMMARY | 2025-05-30 14:45 | XMS_ITS | Clinical Summary ---
Author Organization [facility] Address [address] [place] [address] Phone Care Team Providers Care Rand Maker Name Role Phone Yessy Black DO Primary Care Provider [phone] Allergies No known active allergies Medications vit [...] = 0.6 oz pur e alcohol) 1x/mo [employer] Utilities Answer Date Recorded In the past 12 months has [employer], [employer], oil, or water [email or web address] threatened to shut off services in your [...] How often do you attend [facility] or restoration services? More than 4 times per year 02/02/2024 Do you belong to any clubs o r organizations such as yarsani groups, unions, fraternal or athletic groups, or [...] Date Recorded PHQ-2 Total Score 3 02/02/2024 [facility] of Occupat ional Health - Occupational Stress [...] place to sleep or slept in a retirement (including now)? No 02/02/2024 Sexually Active Control [...] Negative for intraepithelial lesion or malignancy. us [facility] Provider HEALTH MAINTENANCE Final Res ult SEP OFFICE from Last 3 Months or Most Recently Relevant to Health Maintenance Insurance [employer] PPO [employer]UTISTA PPO Care Teams Rand Maker Relationship Specialty Start Date End Date Yessy Black DO [address] [place] [address] PCP - General Family Medicine 08/11/23
--- OUTSIDE RECORDS SUMMARY | 2025-05-30 14:45 | XMS_ITS | Encounter Summary ---
Author Organization [place] [address] Care Team Providers Care Glass Lined Tank Repairer Name Role Phone Yessy Black Primary Care Provider Larissa Butler LCSW Unavailable Unavailable Reason for Visit * Reason Onset Date Comments Paperwork/forms 12/14/2024 Encounter Details Date Type Department Care Team (Late st Contact Info) Description 12/14/2024 Telephone [facility] [address] [place] [address] Sarah Morales, DO [address] [place] [address] Paperwork/forms Social History Tobacco Use Types Packs/Day Years Used Date Smoking Tobacco: Former Cigarettes 0.3 12.7 0 11/30/1999 - 07/31/2012 Passive Smoke Exposure: Past Smokeless Tobacco: Never Alcohol Use Standard Drinks/Week Comments Not Currently 0 (1 standard drink = 0.6 oz pur e alcohol) 1x/mo [facility] Utilities Answer Date Recorded In the past 12 months has [employer] electric, gas, oil, or water company threatened [...] week 02/02/2024 How often do you attend [facility] or oriental orthodox services? More than 4 times per year 02/02/2024 Do you belong to any clubs o r organizations such as scientologist groups, unions, fraternal or athletic groups, or [...] Date Recorded PHQ-2 Total Score 3 02/02/2024 [facility] of Occupat ional Health - Occupational Stress [...] place to sleep or slept in a usp (including now)? No 02/02/2024 Sexually Active Control [...] Denton RN - 05/02/2025 3:57 PM EDT [place] nothing else concerning pt's job and paperwork, [...] 8:32 AM EST I sent pt another [employer] message asking for dates so that I can work on her paperwork. * Telephone Encounter - Chato Denton RN - 12/14/2024 1:31 PM EST Received FMLA/STD (which?) received from pt's employer by fax. Sent pt a [employer] message asking her to send to me [...] documented as of this encounter Care Teams Glass Lined Tank Repairer Relationship Specialty Start Date End Date Yessy Black DO [address] [place] [address] PCP - General Family Medicine 08/11/23 Lairssa Butler LCSW Harness Racing Handicapper 12/13/24 12/26/24 documented as of this encounter
--- NOTE | 2025-05-30 15:00 | US_ITS ---
PROCEDURE: US OB <= 14 WEEKS FETUS CLINICAL INDICATION: nuchal translucency COMPARISON: US US OB <= 14 WEEKS FETUS from 04/20/2025 US US OB <= 14 WEEKS FETUS from 04/27/2025 US US OB TRANSVAGINAL from 05/05/2025 US US OB TRANSVAGINAL from 05/10/2025 FINDINGS: Transabdominal sonographic images of the pelvis were obtained. The following parameters are obtained: From her established due date she is 12weeks 2days Viable fetus in the cephalic presentation with an anterior placenta grade 1. The cervix measures 3.34 cm heart rate: 164bpm bpm. The nuchal thickness measures 1.35-2.15 mm. AC: 12weeks 6days FL: 12weeks 5days FL/AC: 0.14 Amniotic fluid: Subjectively appears normal. MVP 4.05 cm No obvious anomalies evident. Both ovaries are seen. The right ovary measures 5.2 cm x 3.8 cm x 4.4 cm. There continues to be a dermoid cyst within the right ovary that has Rokitansky nodules. IMPRESSION: 1. Viable fetus in the cephalic presentation with an anterior placenta grade 1. 2. The fluid is within normal limits with an MVP 4.05 cm. 3. Nuchal translucency is measured between 1.35-2.15 mm. Normal less than 3.5 mm. 4. There has been good interval growth with the biometry consistent with the dates. 5. Very limited anatomical scan appears normal. 6. There continues to be a dermoid cyst in the right ovary. Dictated by: Niko Grissom MD 05/31/2025 12:06 Niko Grissom MD in OV 05/31/2025 12:06
[2025-05-30 15:52] LABS: Hematocrit 38.5 % (37.0-47.0); Hemoglobin 13.4 g/dL (12.2-16.2); Immature Granulocytes % 0.4 %; Mean Corpuscular HGB Conc 34.8 g/dL (31.8-35.4); Mean Corpuscular Hemoglobin 32.7 pg (27.0-31.2); Mean Corpuscular Volume 93.9 fl (81-99); Nucleated Red Blood Cells % 0 %; Platelet Count 378 K/mm3 (142-424); Red Blood Count 4.10 M/mm3 (4.20-5.40); Red Cell Distribution Width-SD 41.9 fL; White Blood Count 8.2 K/mm3 (4.8-10.8)
[2025-05-30 16:08] LABS: Albumin Level 3.9 g/dl (3.5-5.0); Chloride 102 mmol/L (98-107); Potassium 3.6 mmoL/L (3.5-5.1); Sodium 136 mmol/L (136-145)
[2025-05-30 16:10] LABS: Alanine Aminotransferase 12 U/L (12-78); Anion Gap 11.6 mEq/L (5-15); Aspartate Amino Transferase 23 U/L (14-36); Blood Urea Nitrogen 8 mg/dl (7-17); Carbon Dioxide 26 mmol/L (22.0-30.0); Creatinine,Serum 0.70 mg/dl (0.52-1.04); Estimated Glomerular Filt Rate 93 ml/min (>60); GFR (African American) 113 ML/MIN (>60)
[2025-05-30 16:11] LABS: Albumin/Globulin Ratio 1.3 (1.1-1.8); Alkaline Phosphatase 51 U/L (38-126); Bilirubin,Total 0.3 mg/dl (0.2-1.3); Calcium 8.9 mg/dl (8.4-10.2); Globulin 2.9 g/dL (1.3-3.2); Glucose 125 mg/dl (74-100); Total Protein,Serum 6.8 g/dl (6.3-8.2)
[2025-05-30 17:09] LABS: Hepatitis C Ab Qual. W/ RFX NEGATIVE (Negative)
[2025-05-31 05:09] LABS: Hepatitis B Surface Antigen Negative (Negative)
[2025-05-31 07:10] LABS: Rubella Antibodies, IgG 1.87 index (Immune >0.99)
[2025-06-01 07:27] LABS: RPR W/RFX Titers Nonreactive (Nonreactive)
== END 2025-05-30 23:59 | disposition home or self-care (01) ==
LOC: RAD 14:44
PROVIDERS: Visit Provider Obstetrics & Gynecology
DX: O99.891 Other specified diseases and conditions complicating pregnancy (principal); E28.9 Ovarian dysfunction, unspecified; D27.0 Benign neoplasm of right ovary; Z3A.12 12 weeks gestation of pregnancy; O09.811 Supervision of pregnancy resulting from assisted reproductive technology, first trimester
CPT/HCPCS: 36415; 76801; 80053; 80074; 85025; 86592; 86762; 86850; 87340; 87389

== ENCOUNTER 2025-09-21 16:37 | Outpatient (CLI) | payer BC, SELFPAY ==
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
--- OUTSIDE RECORDS SUMMARY | 2025-07-24 13:51 | XMS_ITS | Encounter Summary ---
Author Organization [facility] Address [address] [place] [address] Care Team Providers Care Facilities And Grounds Director Name Role Phone Provider, No Known Primary Care Provider Unavail able Reason for Referral * Diagnostic Imaging (Routine) - Closed Specialty Diagnoses / Procedures Referred By Contac t Referred To Contact Radiology Diagnoses Advanced maternal age, primigravida, antepartum Conceived by in vitro fertilization Procedures [facility] Diagnostic [place] Nasreen Melchor [address] [place] [address] Phone: tel: fax: [facility] US PER DIAG [facility] [address] [place] [address] Phone: tel: Referral ID Status Reason Start Date Expiration Date Visits Re quested Visits Authorized [id number] Closed 05/25/2025 08/24/2026 1 1 Reason for Visit * Diagnostic Imaging (Routine) - Closed Specialty Diagnoses / Procedures Referred By Contac t Referred To Contact Radiology Diagnoses Advanced maternal age, primigravida, antepartum Conceived by in vitro fertilization Procedures [facility] Nasreen Melchor [address] [place] [address] Phone: tel: fax: [facility] [address] [place] [address] Phone: tel: Referral ID Status Reason Start Date Expiration Date Visits Re quested Visits Authorized [id number] Closed 05/25/2025 08/24/2026 1 1 Encounter Details Date Type Department Care Team (Latest Contact Info) Description 07/24/2025 1:51 PM EDT - 07/24/2025 11:59 PM EDT Hospital Encounter [facility] [address] [place] [address] Nasreen Melchor, DO [address] [address] [place] [address] Advanced maternal age, primigravida, antepartum; Conceived by in vitro fertilization Discharge Disposition: Home or Self Care Social History Tobacco Use Types Packs/Day Years Used Date Smoking Tobacco: Never Smokeless Tobacco: Never Alcohol Use Standard Drinks/Week Comments Never 0 (1 standard drink = 0.6 oz pur e alcohol) Estimated Date of Delivery Comme nts Yes 12/09/2025 Date entered alf or to episode creation Sex and Gender Information Value Date Recorded Sex Assigned at Not on file Legal Sex Female 12:08 PM EDT Gender Identity Not on file Sexual Orientation Not on file documented as of this encounter Medications at Time of Discharge Calcium 200 MG tablet Take 1 tablet by mouth Daily. CHOLINE PO Take 500 mg by mouth Daily. co-enzyme Q-10 30 MG capsule Take 200 mg by mouth Daily. Cyanocobalamin (B-12) 1000 MCG tablet Take 1 tablet by mouth Daily. [place] 3 1200 MG capsule Take 1 tablet by mouth Daily. Vit-Fe Fumarate-FA ( vitamin 27-0.8) 27-0.8 MG tablet tablet Take 1 tablet by mouth Daily. Vitamin D, Cholecalciferol, (CHOLECALCIFEROL) 10 MCG (400 UNIT) tablet Take 1 tablet by mouth Daily. Vitamin E 200 units tablet Take 200 Units by mouth Daily. documented as of this encounter Plan of Treatment Not on file documented as of this encounter Procedures Procedure Name Priority Date/Time Associated Diagnosis Comments [facility] Routine 07/24/2025 2:49 PM EDT Advanced maternal age, primigravida, antepartum Conceived by in vitro fertilization documented in this encounter Results * [facility] (07/24/2025 2:49 PM EDT) Anatomical Region Laterality Modality Ultrasound 07/24/2025 2:20 PM EDT Narrative 07/24/2025 3:01 PM EDT PAT NAME: TAYLOR ÁLVAREZ MED REC#: [id number] DA: [id number] PAT GEND: F PAT TYPE: O EXAM SHIRLENE: [id number] REF PHYS NASREEN MELCHOR Comparison Studies There are no relevant prior studies to which this study is being compared Patient Status Outpatient Indication ======== IVF , AMA-primipara, Maternal Assessment Height 171 cm Height (ft) 5 ft Height (in) 7 in Weight 79 kg Weight (lb) 174 lb BMI 27.02 kg/m Method ======= Transabdominal ultrasound examination. View: Adequate view ========= Griffiths . Number of fetuses: 1 Dating ====== Method of dating: based on stated PHILL GA by prior assessment 20 w + 1 d PHILL by prior assessment: 12/10/2025 Ultrasound examination on: 07/24/2025 GA by U/S based upon: AC, BPD, Femur, HC GA by U/S 21 w + 2 d PHILL by U/S: 12/02/2025 Assigned: based on stated PHILL, selected on 07/24/2025 Assigned GA 20 w + 1 d Assigned PHILL: 12/10/2025 length 280 d Biometry Standard BPD 51.1 mm 21w 3d 92% Hadlock OFD 64.3 mm 21w 6d 94% Lovely HC 187.2 mm 21w 0d 80% Hadlock Cerebellum tr 21.5 mm 20w 2d 79% Hill Nuchal fold 3.2 mm AC 163.4 mm 21w 3d 83% Hadlock Femur 35.8 mm 21w 2d 81% Hadlock Humerus 32.6 mm 21w 0d 81% Lovely HC / AC 1.15 41% Hadlock EFW 417 g 21w 2d 95% Hadlock EFW (lb) 0 lb EFW (oz) 15 oz EFW by: Hadlock ([id number]) Extended Tibia 30.6 mm 21w 2d 86% Lovely Fibula 30.6 mm 20w 6d 68% Lovely Foot 34.7 mm 75% Chitty Radius 28.2 mm 20w 4d 59% Lovely Ulna 30.2 mm 21w 2d 73% Lovely Cav. septi pel. tr 4.9 mm Global Account Manager 5.9 mm CM 5.9 mm 75% Nicolaides Head / Face / Neck Cephalic index 0.79 58% Nicolaides Extremities / Bony Struc FL / BPD 0.70 47% Hadlock FL / HC 0.19 61% Hadlock FL / AC 0.22 52% Hadlock Other Structures FHR 157 bpm General Evaluation Cardiac activity present. FHR 157 bpm. movements present. Presentation breech. Placenta Placental site: anterior. Umbilical cord Cord vessels: 3 vessel cord. Insertion site: placental insertion: normal. Amniotic fluid Amount of AF: normal. Anatomy Cranium: Appears normal Midline falx: Appears normal Cavum septi pellucidi: Appears normal Cerebellum: Appears normal Cisterna magna: Appears normal Head / Neck Rt lateral ventricle: Appears normal Lt lateral ventricle: Appears normal Rt choroid plexus: Appears normal Lt choroid plexus: Appears normal Vermis: Appears normal Neck: Appears normal Nuchal fold: Appears normal Lips: Appear normal Profile: Appears normal Nose: Appears normal Face Nose: Nasal bone present Palate: Appears normal Orbits: Appears normal Lens: Normal 4-chamber view: Appears normal RVOT view: Appears normal LVOT view: Appears normal Heart / Thorax Aortic arch view: suboptimal Aortic arch view: limited by position Ductal arch view: Appears normal SVC: normal IVC: normal 3-vessel view: Appears normal 4-osmmim-gyrjbdz view: Appears normal Rt lung: Appears normal Lt lung: normal Diaphragm: Appears normal Diaphragm: Intact Cord insertion: Appears normal Stomach: Appears normal Bladder: Appears normal Abdomen Rt kidney: normal Lt kidney: normal Liver: normal Small bowel: normal Large bowel: normal Cervical spine: Appears normal Thoracic spine: Appears normal Lumbar spine: Appears normal Sacral spine: Appears normal Arms: Appears normal Legs: Appears normal Rt upper arm: Appears normal Rt forearm: Appears normal Rt hand: Appears normal Lt upper arm: Appears normal Lt forearm: Appears normal Lt hand: Appears normal Rt upper leg: Appears normal Rt lower leg: Appears normal Rt foot: Appears normal Lt upper leg: Appears normal Lt lower leg: Appears normal Lt foot: Appears normal/ Gender: Concealed Wants to know gender: No Maternal Structures Uterus / Cervix Cervix: Visualized Approach: Transabdominal Cervical length 40.4 mm Ovaries / Tubes / Adnexa Rt ovary: Visualized Rt ovary details: dermoid Rt ovary D1 55.2 mm Rt ovary D2 53.3 mm Rt ovary D3 55.3 mm Rt ovary Vol 85.2 cm Lt ovary: Visualized Lt ovary D1 30.8 mm Lt ovary D2 28.7 mm Lt ovary D3 23.40 mm Lt ovary Vol 10.8 cm Impression Taylor presents for a anatomic survey. On today's exam, SIUP is noted in breech presentation with biometry measuring consistent with dates. There is a normal amount of amniotic fluid. Placenta is anterior. Cervical length appears adequate. Normal appearing anatomy is visualized. No structural abnormalities are identified and no soft markers highly suggestive of aneuploidy are seen. Recommendation Follow-up scheduled in 4-6wks. Coding ======= Description: 89331-08 Detailed Ground Products Director: Libby Tirado RDMS Physician: Dang Fortune MD Electronically signed by: Dang Fortune MD at: 15:01 Procedure Note Dang Fortune MD - 07/24/2025 PAT NAME: TAYLOR ÁLVAREZ MED REC#: [id number] DA: 1985 PAT GEND: F PAT TYPE: O EXAM SHIRLENE: [id number] REF PHYS NASREEN MELCHOR Comparison Studies There are no relevant prior studies to which this study is beingcompared Patient Status Outpatient Indication ======== IVF , AMA-primipara, Maternal Assessment Pvcisp297 cm Height (ft)5 ft Height (in)7 in Bbgnrm98 kg Weight (lb)174 lb BMI27.02 kg/m Method ======= Transabdominal ultrasound examination. View: Adequate view ========= Griffiths . Number of fetuses: 1 Dating ====== Method of dating:based on stated PHILL GA by prior [id number] w + 1 d PHILL by prior assessment:12/10/2025 Ultrasound examination on:07/24/2025 GA by U/S based upon:AC, BPD, Femur, HC GA by U/S21 w + 2 d PHILL by U/S:12/02/2025 Assigned:based on stated PHILL, selected on 07/24/2025 Assigned GA20 w + 1 d Assigned PHILL:12/10/2025 [id number] d Biometry Standard BPD51.1 mm 21w 3d 92% Hadlock OFD64.3 mm 21w 6d 94% Lovely HC187.2 mm 21w 0d 80% Hadlock Cerebellum tr21.5 mm 20w 2d 79% Hill Nuchal fold3.2 mm AC163.4 mm 21w 3d 83% Hadlock Femur35.8 mm 21w 2d 81% Hadlock Qucwzju34.6 mm 21w 0d 81% Lovely HC / AC1.15 41% Hadlock JLN910 g 21w 2d 95% Hadlock EFW (lb)0 lb EFW (oz)15 oz EFW by:Hadlock ([id number]) Extended Tibia30.6 mm 21w 2d 86% Lovely Bblglp51.6 mm 20w 6d 68% Lovely Foot34.7 mm 75% Chitty Ofgdtt01.2 mm 20w 4d 59% Lovely Ulna30.2 mm 21w 2d 73% Lovely Cav. septi pel. tr4.9 mm Vp5.9 mm CM5.9 mm 75% Nicolaides Head / Face / Neck Cephalic index0.79 58% Nicolaides Extremities / Bony Struc FL / BPD0.70 47% Hadlock FL / HC0.19 61% Hadlock FL / AC0.22 52% Hadlock Other Structures [id number] bpm General Evaluation Cardiac activity present. FHR 157 bpm. movements present. Presentation breech. Placenta Placental site: anterior. Umbilical cord Cord vessels: 3 vessel cord. Insertion site: placentalinsertion: normal. Amniotic fluid Amount of AF: normal. Anatomy Cranium:Appears normal Midline falx:Appears normal Cavum septi pellucidi:Appears normal Cerebellum:Appears normal Cisterna magna:Appears normal Head / Neck Rt lateral ventricle:Appears normal Lt lateral ventricle:Appears normal Rt choroid plexus:Appears normal Lt choroid plexus:Appears normal Vermis:Appears normal Neck:Appears normal Nuchal fold:Appears normal Lips:Appear normal Profile:Appears normal Nose:Appears normal Face Nose:Nasal bone present Palate:Appears normal Orbits:Appears normal Lens:Normal 4-chamber view:Appears normal RVOT view:Appears normal LVOT view:Appears normal Heart / Thorax Aortic arch view:suboptimal Aortic arch view:limited by position Ductal arch view:Appears normal SVC:normal IVC:normal 3-vessel view:Appears normal 0-wjcffp-eiserws view:Appears normal Rt lung:Appears normal Lt lung:normal Diaphragm:Appears normal Diaphragm:Intact Cord insertion:Appears normal Stomach:Appears normal Bladder:Appears normal Abdomen Rt kidney:normal Lt kidney:normal Liver:normal Small bowel:normal Large bowel:normal Cervical spine:Appears normal Thoracic spine:Appears normal Lumbar spine:Appears normal Sacral spine:Appears normal Arms:Appears normal Legs:Appears normal Rt upper arm:Appears normal Rt forearm:Appears normal Rt hand:Appears normal Lt upper arm:Appears normal Lt forearm:Appears normal Lt hand:Appears normal Rt upper leg:Appears normal Rt lower leg:Appears normal Rt foot:Appears normal Lt upper leg:Appears normal Lt lower leg:Appears normal Lt foot:Appears normal/ Gender: Concealed Wants to know gender: No Maternal Structures Uterus / Cervix Cervix:Visualized Approach:Transabdominal Cervical owzpyv42.4 mm Ovaries / Tubes / Adnexa Rt ovary:Visualized Rt ovary details:dermoid Rt ovary D155.2 mm Rt ovary D253.3 mm Rt ovary D355.3 mm Rt ovary Vol85.2 cm Lt ovary:Visualized Lt ovary D130.8 mm Lt ovary D228.7 mm Lt ovary D323.40 mm Lt ovary Vol10.8 cm Impression Taylor presents for a anatomic survey. On today's exam, SIUP is noted in breech presentation with biometrymeasuring consistent with dates. There is a normal amount of amnioticfluid. Placenta is anterior. Cervical length appears adequate. Normal appearing anatomy is visualized. No structural abnormalities areidentified and no soft markers highly suggestive of aneuploidy areseen. Recommendation Follow-up scheduled in 4-6wks. Coding ======= Description:05843-35 Detailed Ground Products Director: Libby Tirado RDMS Physician: Dang Fortune MD Electronically signed by: Dang Fortune MD at: 15:01 us Nasreen Melchor DO IMG US ORDERABLES Final Res ult documented in this encounter Visit Diagnoses Diagnosis Advanced maternal age, primigravida, antepartum Elderly primigravida, antepartum Conceived by in vitro fertilization documented in this encounter Care Teams Facilities And Grounds Director Relationship Specialty Start Date End Date Provider, [place] [address] PCP - General 05/25/25 documented as of this encounter
--- OUTSIDE RECORDS SUMMARY | 2025-07-24 14:00 | XMS_ITS | Encounter Summary ---
[facility] Address [address] [place] [id number] Care Team Providers Care Mannequin Refinisher Name Role Phone Provider, No Known Primary Care Provider Unavail able Reason for Referral * Diagnostic Imaging (Routine) - Closed Specialty Diagnoses / Procedures Referred By Contac t Referred To Contact Radiology Diagnoses Advanced maternal age, primigravida, antepartum resulting from in vitro fertilization, antepartum Procedures [facility] Dang Fortune MD [address] [facility] [address] [place] [address] Phone: tel: fax: [facility] [address] [place] [address] Phone: tel: Referral ID Status Reason Start Date Expiration Date Visits Re quested Visits Authorized [id number] Closed 07/24/2025 10/23/2026 1 1 Reason for Visit * Reason Comments AMA- primip; IVF Encounter Details Date Type Department Care Team (Late st Contact Info) Description 07/24/2025 2:00 PM EDT Office Visit [facility] [address] [facility] [address] [place] [phone] Dang Fortune MD [address] [facility] [address] [place], [place] [id number] Advanced maternal age, primigravida, antepartum (Primary Dx); resulting from in vitro fertilization, antepartum; 20 weeks gestation of Social History Tobacco Use Types Packs/Day Years Used Date Smoking Tobacco: Never Smokeless Tobacco: Never Tobacco Cessation:Counseling Given: Not Answered Alcohol Use Standard Drinks/Week Comments Never 0 [...] Sign Reading Time Taken Comments Blood Pressure 126/73 07/24/2025 2:12 PM EDT Pulse - - Temperature - - Respiratory Rate - - Oxygen Saturation - - Inhaled Oxygen Concentration - - Weight 78.9 kg (174 lb) 07/24/2025 2:12 PM EDT Height 171.5 cm (5' 7.5 ) 07/24/2025 2:13 PM EDT Body Mass Index 26.85 07/24/2025 2:12 PM EDT documented in this encounter Progress Notes * Dang Fortune MD - 07/24/2025 2:55 PM EDTAssociated Problem(s): conceived through in vitro fertilization - Echo scheduled in 4-6wks * Dang Fortune MD - 07/24/2025 2:55 PM EDTAssociated Problem(s): Advanced maternal age, primigravida, antepartum S/p normal PGT. Anatomy today appears normal. - Follow-up scheduled in 4-6wks for a echo * Becky Chris RN - 07/24/2025 2:00 PM EDT Patient denies any leaking of fluid, vaginal bleeding, or contractions. NIPT declined, PGT normal Patient reports next follow-up appointment with Dr. Melchor's office is 08/02. * Dang Fortune MD - 07/24/2025 2:00 PM EDT Images from the original note were not included. Maternal/ Medicine Consult Note Name: Alex Álvarez : 1985 Referring Provider: Randy Melchor DO Chief Complaint AMA- primip; IVF Subjective History of Present Illness: Alex Álvarez is a 40 y.o. 20w2d who presents today for a anatomic survey. She is s/p normal PGT. Pt denies LOF/VB/cramping. PHILL: Estimated Date of Delivery: 12/09/25 ROS: As noted in HPI. History reviewed. No pertinent past medical history. Past Surgical History: Procedure Laterality Date FERTILITY SURGERY 12/2024 egg retrieval x6, from 12/2024 - frozen transfer OB History 1 Para 0 Term 0 0 AB 0 Living 0 SAB 0 IAB 0 Ectopic 0 Molar 0 Multiple 0 Live Births 0 Objective Vital Signs BP 126/73 Ht 171.5 cm (67.5 ) Wt 78.9 kg (174 lb) Estimated body mass index is 26.85 kg/m?? as calculated from the following: Height as of this encounter: 171.5 cm (67.5 ). Weight as of this encounter: 78.9 kg (174 lb). Physical Exam Constitutional: Appearance: Normal appearance. She is normal weight. HENT: Head: Normocephalic and atraumatic. Cardiovascular: Rate and Rhythm: Normal rate. Pulmonary: Effort: Pulmonary effort is normal. Musculoskeletal: General: Normal range of motion. Cervical back: Normal range of motion and neck supple. Neurological: General: No focal deficit present. Mental Status: She is alert and oriented to person, place, and time. Psychiatric: Mood and Affect: Mood normal. Behavior: Behavior normal. Thought Content: Thought content normal. Judgment: Judgment normal. Ultrasound Impression: Breech, S=D, nl YUE, anterior placenta, nl CL, nl anatomy. Assessment and Plan Diagnoses and all orders for this visit: 1. Advanced maternal age, primigravida, antepartum (Primary) Assessment & Plan: S/p normal PGT. Anatomy today appears normal. - Follow-up scheduled in 4-6wks for a echo Orders: - [facility] [place]; Future 2. resulting from in vitro fertilization, antepartum Assessment & Plan: - Echo scheduled in 4-6wks Orders: - [facility]; Future 3. 20 weeks gestation of Follow Up Return in about 4 weeks (around 08/21/2025). I spent 30 minutes caring for the patient on the day of service. This included: obtaining or reviewing a separately obtained medical history, reviewing patient records, performing a medically appropriate exam and/or evaluation, counseling or educating the patient/family/caregiver, ordering medications, labs, and/or procedures and documenting such in the medical record. This does not include time spent on review and interpretation of other tests such as ultrasound or the performance of other procedures such as amniocentesis or CVS. Dang Fortune MD 07/24/2025 documented in this encounter Plan of Treatment Not on file documented as of this encounter Results * [facility] (09/07/2025 3:02 PM EDT) Anatomical Region Laterality Modality Ultrasound 09/07/2025 2:19 PM EDT Narrative 09/07/2025 3:06 PM EDT PAT NAME: ALEX ÁLVAREZ [facility] REC#: [id number] DA: [id number] PAT GEND: F PAT TYPE: O EXAM SHIRLENE: [id number] REF PHYS KAMILLA MELCHORLEY Comparison Studies The findings of this study are compared to the prior ultrasound study dated 07/24/25. Patient Status Outpatient Indication ======== IVF , AMA-primipara, Maternal Assessment Height 171 cm Height (ft) 5 ft Height (in) 7 in Weight 82 kg Weight (lb) 180 lb BMI 27.92 kg/m Method ======= Transabdominal ultrasound examination ========= Griffiths . Number of fetuses: 1 Dating ====== GA by prior assessment 26 w + 5 d PHILL by prior assessment: 12/09/2025 Ultrasound examination on: 09/07/2025 GA by U/S based upon: AC, BPD, Femur, HC GA by U/S 27 w + 6 d PHILL by U/S: 12/01/2025 Method of dating: Restore dating from previous exam Previous dating: based on stated PHILL, selected on 07/24/2025 Agreed PHILL of previous datin12/10/2025 Assigned: based on stated PHILL, selected on 07/24/2025 Assigned GA 26 w + 4 d Assigned PHILL: 12/10/2025 length 280 d Biometry Standard BPD 70.1 mm 28w 1d 87% Hadlock OFD 91.0 mm 29w 2d 99% Lovely HC 259.4 mm 28w 1d 77% Hadlock Cerebellum tr 32.4 mm 27w 4d 88% Hill AC 228.0 mm 27w 1d 61% Hadlock Femur 52.6 mm 28w 0d 77% Hadlock Humerus 48.2 mm 28w 2d 90% Lovely HC / AC 1.14 EFW 1,102 g 27w 2d 79% Hadlock EFW (lb) 2 lb EFW (oz) 7 oz EFW by: Hadlock ([id number]) Extended Cav. septi pel. tr 5.4 mm [employer] Mixing Plant Laborer 5.8 mm CM 6.9 mm 64% Nicolaides Head / Face / Neck Cephalic index 0.77 32% Nicolaides Thorax / Lungs Thoracic circ 198.6 mm 68% [place] Thoracic area 31.0 cm ThC / AC 0.87 Heart / Great Vessels Cardiac axis 40 Cardiac circ 107.6 mm Cardiac area 9.2 cm CC / ThC 0.54 CA / Jose Juan 0.30 PA main 5.42 mm Rt PA branch 3.35 mm 68% Presley Lt PA branch 3.91 mm 92% Presley Ao asc 4.51 mm Ao isthmus 4.2 mm 70% Presley Ao desc 4.12 mm McGoon Index mod. 1.8 PA main / Ao asc 1.20 IVC 3.67 mm SVC 3.31 mm Extremities / Bony Struc FL / BPD 0.75 FL / HC 0.20 FL / AC 0.23 Other Structures FHR 135 bpm General Evaluation Cardiac activity present. FHR 135 bpm. movements present. Presentation breech. Placenta Placental site: anterior. Umbilical cord Cord vessels: 3 vessel cord. Insertion site: placental insertion: normal. Amniotic fluid Amount of AF: normal. MVP 6.0 cm. YUE 22.3 cm. Q1 6.0 cm, Q2 4.5 cm, Q3 5.1 cm, Q4 6.7 cm. Anatomy Cranium: Normal Cavum septi pellucidi: Normal Cerebellum: Normal Cisterna magna: Normal Head / Neck Rt lateral ventricle: Normal Lt lateral ventricle: Normal Lips: Normal Profile: Normal Nose: Normal 4-chamber view: Appears normal RVOT view: Appears normal LVOT view: Appears normal Heart / Thorax Aortic arch view: Appears normal Ductal arch view: Appears normal SVC: Appears Normal IVC: Appears Normal 3-vessel view: Appears normal 9-wykdvt-bxhkjoe view: Appears normal Cardiac axis: Normal Stomach: Normal Bladder: Normal/ Gender: Concealed Wants to know gender: No Echocardiogram 2D Echo (Qualitatively) 4-chamber view: Appears normal LVOT view: Appears normal RVOT view: Appears normal 3-vessel view: Appears normal 2-lmwpip-wudrsox view: Appears normal Aortic arch view: Appears normal Ductal arch view: Appears normal SVC: Appears Normal IVC: Appears Normal Cardiac axis: Normal Venous-atrial connections: normal size and morphology AV connections: normal alignment VA connections: normal size and morphology Pulmonary veins: normal size and morphology Right atrium: normal size and morphology Left atrium: normal size and morphology Atrial septum: normal size and morphology Foramen ovale: normal (in the central third/half, flap valve in left atrium) Right ventricle: normal size and morphology Left ventricle: normal size and morphology Ventricular septum: ventricular septum intact (apex to crux) Tricuspid valve: normal size and morphology Mitral valve: normal size and morphology Cross-over gr. arteries: anterior great artery (confirmed to be the pulmonary artery by its branching) which crosses the course of the proximal aorta, indicative of normal relationship of the great arteries Main PA: the main pulmonary artery can be seen bifurcating into the ductus arteriosus and the right pulmonary artery B and M-Mode Measurements Thoracic circ 198.6 mm 68% [place] Thoracic area 31.0 cm ThC / AC 0.87 Cardiac axis 40 Cardiac circ 107.6 mm Cardiac area 9.2 cm CC / ThC 0.54 CA / Jose Juan 0.30 RA length diast 9.20 mm RA width diast 11.34 mm RV width diast 10.88 mm 39% Pleitez RV wall diast 2.15 mm 11% Pleitez LA length diast 8.5 mm LA width diast 7.9 mm LV width diast 12.13 mm 65% Pleitez LV wall diast 1.85 mm 2% Pleitez IV Septum diast 2.58 mm 49% Pleitez RV inlet 20.80 mm RVOT diam 5.90 mm RVOT area 27.0 mm LV inlet 18.19 mm LVOT diam 5.0 mm LVOT area 20.0 mm TV diast 4.11 mm <1% Presley MV diast 3.68 mm <1% Presley PA main 5.42 mm Rt PA branch 3.35 mm 68% Presley Lt PA branch 3.91 mm 92% Presley Ao asc 4.51 mm Ao isthmus 4.2 mm 70% Presley Ao desc 4.12 mm McGoon Index mod. 1.8 PA main / Ao asc 1.20 IVC 3.67 mm SVC 3.31 mm RV width diast Zscore (FL) -0.20 RV width diast Zscore (BPD) 0.09 RV width diast Zscore (GA) 0.48 RV width diast Zscore by: Gato LV width diast Zscore (FL) 0.88 LV width diast Zscore (BPD) 1.07 LV width diast Zscore (GA) 1.46 LV width diast Zscore by: Gato RV inlet Zscore (FL) 0.08 RV inlet Zscore (BPD) 0.38 RV inlet Zscore (GA) 0.66 RV inlet Zscore by: Gato LV inlet Zscore (FL) -1.50 LV inlet Zscore (BPD) -1.02 LV inlet Zscore (GA) -0.61 LV inlet Zscore by: Gato RV area Zscore by: Gato LV area Zscore by: Gato TV annulus diast Zscore by: Gato MV annulus diast Zscore by: Gato PV annulus syst Zscore by: Gato AoV annulus syst Z-score by: Gato PA main Zscore (FL) -0.68 PA main Zscore (BPD) -0.46 PA main Zscore (GA) -0.03 PA main Zscore by: Gato Ductus arteriosus Zscore by: Gato Rt PA branch Zscore (FL) 0.49 Rt PA branch Zscore (BPD) 0.74 Rt PA branch Zscore (GA) 0.99 Rt PA branch Zscore by: Gato Lt PA branch Zscore (FL) 1.63 Lt PA branch Zscore (BPD) 1.88 Lt PA branch Zscore (GA) 2.10 Lt PA branch Zscore by: Gato Ao asc Zscore (FL) -1.18 Ao asc Zscore (BPD) -0.84 Ao asc Zscore (GA) -0.35 Ao asc Zscore by: Gato Ao isthmus Zscore (FL) 2.46 Ao isthmus Zscore (BPD) 2.28 Ao isthmus Zscore (GA) 2.84 Ao isthmus Zscore (EFW) 2.80 Ao isthmus Zscore by: Jordi Ao desc Zscore (FL) -0.67 Ao desc Zscore (BPD) -0.25 Ao desc Zscore (GA) 0.15 Ao desc Zscore by: Gato IVC Zscore (FL) 0.59 IVC Zscore (BPD) 0.79 IVC Zscore (GA) 1.05 IVC Zscore by: Gato Intracardial Spectral Doppler TV E-wave 37.59 cm/s 36% Hecher TV A-wave 61.08 cm/s 64% Hecher TV E / A 0.62 16% Hecher MV E-wave 33.74 cm/s 44% Hecher MV A-wave 64.07 cm/s 92% Hecher MV E / A 0.53 3% Hecher Speckle Tracking Device/Procedure: Transabdominal ultrasound examination Consultation / Office Visit Office note to follow Impression Today's exam reveals a SIUP in breech presentation with biometry consistent with dates. Limited anatomic survey appears normal. Normal 4-chamber cardiac view appears normal. Normal right and left ventricular outflow tracts. Normal ductal and aortic arch views. The foramen ovale is patent. The cardiac axis is normal. There is no evidence of a arrhythmia. There is no evidence of a ventricular septal defect by color-flow Doppler. No pleural or pericardial effusion. See detailed echocardiogram parameters as above. The amniotic fluid is normal. Recommendation Recommend 32 growth ultrasound in your office (declined follow up here). Coding ======= Description: 50583-88 Follow Up Ultrasound Description: 80343-77 Echo 2D, heart - initial Description: 94048-12 Doppler echo color flow Machine Driller: Adriana Rodriguez RDMS Physician: Mynor Byrd MD, FACOG Electronically signed by: Mynor Byrd MD, FACOG at: 15:06 Procedure Note Mynor Byrd MD - 09/07/2025 PAT NAME: ALEX ÁLVAREZ MED REC#: [id number] DA: [id number] PAT GEND: F PAT TYPE: O EXAM SHIRLENE: [id number] REF PHYS RANDY MELCHOR Comparison Studies The findings of this study are compared to the prior ultrasound studydated 07/24/25. Patient Status Outpatient Indication ======== IVF , AMA-primipara, Maternal Assessment Vlxszn460 cm Height (ft)5 ft Height (in)7 in Pwmthv04 kg Weight (lb)180 lb BMI27.92 kg/m Method ======= Transabdominal ultrasound examination ========= Griffiths . Number of fetuses: 1 Dating ====== GA by prior [id number] w + 5 d PHILL by prior assessment:12/09/2025 Ultrasound examination on:09/07/2025 GA by U/S based upon:AC, BPD, Femur, HC GA by U/S27 w + 6 d PHILL by U/S:12/01/2025 Method of dating:Restore dating from previous exam Previous dating:based on stated PHILL, selected on 07/24/2025 Agreed PHILL of previous datin12/10/2025 Assigned:based on stated PHILL, selected on 07/24/2025 Assigned GA26 w + 4 d Assigned PHILL:12/10/2025 [id number] d Biometry Standard BPD70.1 mm 28w 1d 87% Hadlock OFD91.0 mm 29w 2d 99% Lovely HC259.4 mm 28w 1d 77% Hadlock Cerebellum tr32.4 mm 27w 4d 88% Hill AC228.0 mm 27w 1d 61% Hadlock Femur52.6 mm 28w 0d 77% Hadlock Rxbirlt14.2 mm 28w 2d 90% Lovely HC / AC1.14 EFW1,102 g 27w 2d 79% Hadlock EFW (lb)2 lb EFW (oz)7 oz EFW by:Hadlock ([id number]) Extended Cav. septi pel. tr5.4 mm Vp5.8 mm CM6.9 mm 64% Nicolaides Head / Face / Neck Cephalic index0.77 32% Nicolaides Thorax / Lungs Thoracic pfkm547.6 mm 68% [place] Thoracic area31.0 cm ThC / AC0.87 Heart / Great Vessels Cardiac axis40 Cardiac kaiz533.6 mm Cardiac area9.2 cm CC / ThC0.54 CA / ThA0.30 PA main5.42 mm Rt PA branch3.35 mm 68% Presley Lt PA branch3.91 mm 92% Presley Ao asc4.51 mm Ao isthmus4.2 mm 70% Presley Ao desc4.12 mm McGoon Index mod.1.8 PA main / Ao asc1.20 IVC3.67 mm SVC3.31 mm Extremities / Bony Struc FL / BPD0.75 FL / HC0.20 FL / AC0.23 Other Structures [id number] bpm General Evaluation Cardiac activity present. FHR 135 bpm. movements present. Presentation breech. Placenta Placental site: anterior. Umbilical cord Cord vessels: 3 vessel cord. Insertion site: placentalinsertion: normal. Amniotic fluid Amount of AF: normal. MVP 6.0 cm. YUE 22.3 cm. Q1 6.0 cm,Q2 4.5 cm, Q3 5.1 cm, Q4 6.7 cm. Anatomy Cranium:Normal Cavum septi pellucidi:Normal Cerebellum:Normal Cisterna magna:Normal Head / Neck Rt lateral ventricle:Normal Lt lateral ventricle:Normal Lips:Normal Profile:Normal Nose:Normal 4-chamber view:Appears normal RVOT view:Appears normal LVOT view:Appears normal Heart / Thorax Aortic arch view:Appears normal Ductal arch view:Appears normal SVC:Appears Normal IVC:Appears Normal 3-vessel view:Appears normal 3-apvsaq-ggkxjkm view:Appears normal Cardiac axis:Normal Stomach:Normal Bladder:Normal/ Gender: Concealed Wants to know gender: No Echocardiogram 2D Echo (Qualitatively) 4-chamber view:Appears normal LVOT view:Appears normal RVOT view:Appears normal 3-vessel view:Appears normal 7-akmyil-aiwrtay view:Appears normal Aortic arch view:Appears normal Ductal arch view:Appears normal SVC:Appears Normal IVC:Appears Normal Cardiac axis:Normal Venous-atrial connections:normal size and morphology AV connections:normal alignment VA connections:normal size and morphology Pulmonary veins:normal size and morphology Right atrium:normal size and morphology Left atrium:normal size and morphology Atrial septum:normal size and morphology Foramen ovale:normal (in the central third/half, flap valve in leftatrium) Right ventricle:normal size and morphology Left ventricle:normal size and morphology Ventricular septum:ventricular septum intact (apex to crux) Tricuspid valve:normal size and morphology Mitral valve:normal size and morphology Cross-over gr. arteries:anterior great artery (confirmed to be thepulmonary artery by its branching) which crosses the course of theproximal aorta, indicative of normal relationship of the great arteries Main PA:the main pulmonary artery can be seen bifurcating into the ductusarteriosus and the right pulmonary artery B and M-Mode Measurements Thoracic kowu415.6 mm 68% [place] Thoracic area31.0 cm ThC / AC0.87 Cardiac axis40 Cardiac wryy838.6 mm Cardiac area9.2 cm CC / ThC0.54 CA / ThA0.30 RA length diast9.20 mm RA width diast11.34 mm RV width diast10.88 mm 39% Pleitez RV wall diast2.15 mm 11% Pleitez LA length diast8.5 mm LA width diast7.9 mm LV width diast12.13 mm 65% Pleitez LV wall diast1.85 mm 2% Pleitez IV Septum diast2.58 mm 49% Pleitez RV inlet20.80 mm RVOT diam5.90 mm RVOT area27.0 mm LV inlet18.19 mm LVOT diam5.0 mm LVOT area20.0 mm TV diast4.11 mm <1% Presley MV diast3.68 mm <1% Presley PA main5.42 mm Rt PA branch3.35 mm 68% Presley Lt PA branch3.91 mm 92% Presley Ao asc4.51 mm Ao isthmus4.2 mm 70% Presley Ao desc4.12 mm McGoon Index mod.1.8 PA main / Ao asc1.20 IVC3.67 mm SVC3.31 mm RV width diast Zscore (FL)-0.20 RV width diast Zscore (BPD)0.09 RV width diast Zscore (GA)0.48 RV width diast Zscore by:Gato LV width diast Zscore (FL)0.88 LV width diast Zscore (BPD)1.07 LV width diast Zscore (GA)1.46 LV width diast Zscore by:Gato RV inlet Zscore (FL)0.08 RV inlet Zscore (BPD)0.38 RV inlet Zscore (GA)0.66 RV inlet Zscore by:Gato LV inlet Zscore (FL)-1.50 LV inlet Zscore (BPD)-1.02 LV inlet Zscore (GA)-0.61 LV inlet Zscore by:Gato RV area Zscore by:Gato LV area Zscore by:Gato TV annulus diast Zscore by:Gato MV annulus diast Zscore by:Gato PV annulus syst Zscore by:Gato AoV annulus syst Z-score by:Gato PA main Zscore (FL)-0.68 PA main Zscore (BPD)-0.46 PA main Zscore (GA)-0.03 PA main Zscore by:Gato Ductus arteriosus Zscore by:Gato Rt PA branch Zscore (FL)0.49 Rt PA branch Zscore (BPD)0.74 Rt PA branch Zscore (GA)0.99 Rt PA branch Zscore by:Gato Lt PA branch Zscore (FL)1.63 Lt PA branch Zscore (BPD)1.88 Lt PA branch Zscore (GA)2.10 Lt PA branch Zscore by:Gato Ao asc Zscore (FL)-1.18 Ao asc Zscore (BPD)-0.84 Ao asc Zscore (GA)-0.35 Ao asc Zscore by:Gato Ao isthmus Zscore (FL)2.46 Ao isthmus Zscore (BPD)2.28 Ao isthmus Zscore (GA)2.84 Ao isthmus Zscore (EFW)2.80 Ao isthmus Zscore by:Jordi Ao desc Zscore (FL)-0.67 Ao desc Zscore (BPD)-0.25 Ao desc Zscore (GA)0.15 Ao desc Zscore by:Gato IVC Zscore (FL)0.59 IVC Zscore (BPD)0.79 IVC Zscore (GA)1.05 IVC Zscore by:Gato Intracardial Spectral Doppler TV E-wave37.59 cm/s 36% Hecher TV A-wave61.08 cm/s 64% Hecher TV E / A0.62 16% Hecher MV E-wave33.74 cm/s 44% Hecher MV A-wave64.07 cm/s 92% Hecher MV E / A0.53 3% Hecher Speckle Tracking Device/Procedure:Transabdominal ultrasound examination Consultation / Office Visit Office note to follow Impression Today's exam reveals a SIUP in breech presentation with biometryconsistent with dates. Limited anatomic survey appears normal.Normal 4-chamber cardiac view appears normal. Normal right and left ventricular outflow tracts. Normalductal and aortic arch views. The foramen ovale is patent. The cardiacaxis is normal. There is no evidence of a arrhythmia. There is no evidence of a ventricularseptal defect by color-flow Doppler. No pleural or pericardial effusion.See detailed echocardiogram parameters as above. The amniotic fluid is normal. Recommendation Recommend 32 growth ultrasound in your office (declined follow up here). Coding ======= Description:02515-19 Follow Up Ultrasound Description:88502-95 Echo 2D, heart - initial Description:80634-33 Doppler echo color flow Machine Driller: Adriana Rodriguez RDMS Physician: Mynor Byrd MD, FACOG Electronically signed by: Mynor Byrd MD, FACOG at: 15:06 us Dang Fortune MD IMG US ORDERABLES Final Res ult documented in this encounter Visit Diagnoses Diagnosis Advanced maternal age, primigravida, antepartum- Primary Elderly primigravida, antepartum resulting from in vitro fertilization, antepartum 20 weeks gestation of Advanced maternal age, primigravida, antepartum Elderly primigravida, antepartum resulting from in vitro fertilization, antepartum documented in this encounter Care Teams Mannequin Refinisher Relationship Specialty Start Date End Date Provider, [place] [address] PCP - General 05/25/25 documented as of this encounter
--- OUTSIDE RECORDS SUMMARY | 2025-09-07 14:03 | XMS_ITS | Encounter Summary ---
Author Organization [facility] Address [address] [place] [address] Care Team Providers Care Orthopedic Shoes Salesperson Name Role Phone Provider, No Known Primary Care Provider Unavail able Reason for Referral * Diagnostic Imaging (Routine) - Closed Specialty Diagnoses / Procedures Referred By Contac t Referred To Contact Radiology Diagnoses Advanced maternal age, primigravida, antepartum resulting from in vitro fertilization, antepartum Procedures [facility] [place] Dang Fortune MD [address] [place] [address] Phone: tel: fax: [facility] DI[facility] [address] [place] [address] Phone: tel: Referral ID Status Reason Start Date Expiration Date Visits Re quested Visits Authorized [id number] Closed 07/24/2025 10/23/2026 1 1 Reason for Visit * Diagnostic Imaging (Routine) - Closed Specialty Diagnoses / Procedures Referred By Contac t Referred To Contact Radiology Diagnoses Advanced maternal age, primigravida, antepartum resulting from in vitro fertilization, antepartum Procedures [facility] Diagnostic [place] Dang Fortune MD [address] [place] [address] Phone: tel: fax: [facility] [address] [place] [address] Phone: tel: Referral ID Status Reason Start Date Expiration Date Visits Re quested Visits Authorized [id number] Closed 07/24/2025 10/23/2026 1 1 Encounter Details Date Type Department Care Team (Late st Contact Info) Description 09/07/2025 2:03 PM EDT - 09/07/2025 11:59 PM EDT Hospital Encounter [facility] [address] [place] [address] Dang Fortune MD [address] [facility] [address] [place] [id number] Advanced maternal age, primigravida, antepartum; resulting from in vitro fertilization, antepartum Discharge Disposition: Home or Self Care Social [...] tablet Take 1 tablet by mouth Daily. [place] 3 1200 MG capsule Take 1 tablet [...] Procedure Name Priority Date/Time Associated Diagnosis Comments [facility] Routine 09/07/2025 3:02 PM EDT Advanced maternal age, primigravida, antepartum resulting from in vitro fertilization, antepartum documented in this encounter Results * [facility] (09/07/2025 3:02 PM EDT) Anatomical Region Laterality Modality Ultrasound 09/07/2025 2:19 PM EDT Narrative 09/07/2025 3:06 PM EDT PAT NAME: ALEX ÁLVAREZ [facility] REC#: [id number] DA: [id number] PAT GEND: F PAT TYPE: O EXAM SHIRLENE: [id number] REF PHYS RANDY BETHEA Comparison Studies The findings of this study [...] EFW (oz) 7 oz EFW by: Hadlock ([id number]-OF-[id number]) Extended Cav. septi pel. tr 5.4 mm Truck Terminal Manager 5.8 mm CM 6.9 mm 64% Nicolaides [...] IVC: Appears Normal 3-vessel view: Appears normal 8-ophupc-drjjfcq view: Appears normal Cardiac axis: Normal Stomach: Normal Bladder: Normal/ Gender: Concealed Wants to know gender: No Echocardiogram 2D Echo (Qualitatively) 4-chamber view: Appears normal LVOT view: Appears normal RVOT view: Appears normal 3-vessel view: Appears normal 2-sezwkq-nvdjmdg view: Appears normal Aortic arch view: Appears [...] (declined follow up here). Coding ======= Description: 16779-46 Follow Up Ultrasound Description: 28501-85 Echo 2D, heart - initial Description: 19033-56 Doppler echo color flow Skidder Lever Operator: Adriana Rodriguez RDMS Physician: Mynor Byrd MD, FACOG Electronically signed by: Mynor Byrd MD, FACOG at: 15:06 Procedure Note Mynor Byrd MD - 09/07/2025 PAT NAME: ALEX ÁLVAREZ [facility] REC#: [id number] DA: 1985 PAT GEND: F PAT TYPE: O EXAM SHIRLENE: [id number] REF PHYS RANDY BETHEA Comparison Studies The findings of this study are compared to the prior ultrasound studydated 07/24/25. Patient Status Outpatient Indication ======== IVF , AMA-primipara, Maternal Assessment Pqzzjr386 cm Height (ft)5 ft Height (in)7 in Cmmbvn28 kg Weight (lb)180 lb BMI27.92 kg/m Method ======= Transabdominal ultrasound examination ========= Griffiths . Number of fetuses: 1 Dating ====== GA by prior qzukvnucde90 w + 5 d PHILL by prior [...] GA26 w + 4 d Assigned PHILL:12/10/2025 d Biometry Standard BPD70.1 mm 28w 1d 87% Hadlock OFD91.0 mm 29w 2d 99% Lovely HC259.4 mm 28w 1d 77% Hadlock Cerebellum tr32.4 mm 27w 4d 88% Hill AC228.0 mm 27w 1d 61% Hadlock Femur52.6 mm 28w 0d 77% Hadlock Jfqujhu39.2 mm 28w 2d 90% Lovely HC / AC1.14 EFW1,102 g 27w 2d 79% Hadlock EFW (lb)2 lb EFW (oz)7 oz EFW by:Hadlock ([id number]-FL) Extended Cav. septi pel. tr5.4 mm Vp5.8 mm CM6.9 mm 64% Nicolaides Head / Face / Neck Cephalic index0.77 32% Nicolaides Thorax / Lungs Thoracic afwa419.6 mm 68% [place] Thoracic area31.0 cm ThC / AC0.87 Heart / Great Vessels Cardiac axis40 Cardiac xffy141.6 mm Cardiac area9.2 cm CC / ThC0.54 CA / ThA0.30 PA main5.42 mm Rt PA branch3.35 mm 68% Presley Lt PA branch3.91 mm 92% Presley Ao asc4.51 mm Ao isthmus4.2 mm 70% Presley Ao desc4.12 mm McGoon Index mod.1.8 PA main / Ao asc1.20 IVC3.67 mm SVC3.31 mm Extremities / Bony Struc FL / BPD0.75 FL / HC0.20 FL / AC0.23 Other Structures VUG433 bpm General Evaluation Cardiac activity present. FHR [...] SVC:Appears Normal IVC:Appears Normal 3-vessel view:Appears normal 1-tjxcxm-vdcsnbn view:Appears normal Cardiac axis:Normal Stomach:Normal Bladder:Normal/ Gender: Concealed Wants to know gender: No Echocardiogram 2D Echo (Qualitatively) 4-chamber view:Appears normal LVOT view:Appears normal RVOT view:Appears normal 3-vessel view:Appears normal 8-xuehaq-wdqbxcn view:Appears normal Aortic arch view:Appears normal Ductal [...] pulmonary artery B and M-Mode Measurements Thoracic auwb655.6 mm 68% [place] Thoracic area31.0 cm ThC / AC0.87 Cardiac axis40 Cardiac ekex791.6 mm Cardiac area9.2 cm CC / ThC0.54 [...] office (declined follow up here). Coding ======= Description:50489-21 Follow Up Ultrasound Description:05063-17 Echo 2D, heart - initial Description:87871-61 Doppler echo color flow Skidder Lever Operator: Adriana Rodriguez RDMS Physician: Mynor Byrd MD, FACOG Electronically signed by: Mynor Byrd MD, FACOG at: 15:06 us Dang Fortune MD IMG US ORDERABLES Final Res ult documented in this encounter Visit Diagnoses Diagnosis Advanced maternal age, primigravida, antepartum Elderly primigravida, antepartum resulting from in vitro fertilization, antepartum documented in this encounter Care Teams Orthopedic Shoes Salesperson Relationship Specialty Start Date End Date Provider, [place] [address] PCP - General 05/25/25 documented as of this encounter
--- OUTSIDE RECORDS SUMMARY | 2025-09-07 14:15 | XMS_ITS | Encounter Summary ---
Author Organization [facility] Address [address] [place] [id number] Care Team Providers Care Mold Stamper Name Role Phone Provider, No Known Primary Care Provider Unavail able Encounter Details Date Type Department Care Team (Late st Contact Info) Description 09/07/2025 2:15 PM EDT Office Visit [facility] [address] [facility] [address] [place] [id number] Mynor Byrd MD [address] [place] [phone] resulting from in vitro fertilization in second trimester (Primary Dx); Advanced maternal age, primigravida, antepartum Social History Tobacco Use Types Packs/Day Years Used Date Smoking Tobacco: Never Smokeless Tobacco: Never Alcohol Use Standard Drinks/Week Comments Never 0 (1 standard drink = 0.6 oz pur e alcohol) Estimated Date of Delivery Comme nts Yes 12/09/2025 Date entered afl or to episode creation Sex and Gender Information Value Date Recorded Sex Assigned at Not on file Legal Sex Female 12:08 PM EDT Gender Identity Not on file Sexual Orientation Not on file documented as of this encounter Progress Notes * Mynor Byrd MD - 09/07/2025 2:42 PM EDTAssociated Problem(s): conceived through in vitro fertilization Patient presents for follow-up ultrasound and echo secondary to IVF . We discussed that IVF pregnancies are an increased risk of cardiac abnormalities and therefore echo was performed. We discussed the limitations of echo including diagnosing valvular abnormalities and small VSDs. Today's ultrasound shows normal growth and normal echo. We discussed the need for growth ultrasound at 32 weeks. * Mynor Byrd MD - 09/07/2025 2:15 PM EDT Maternal/ Medicine Consult Note Date: 09/07/2025 Name: Taylor Lilly : 1985 Referring Provider: Nasreen Melchor DO Chief Complaint AMA and IVF Subjective History of Present Illness: Taylor Lilly is a 40 y.o. 26w5d who presents today for AMA and IVF PHILL: Estimated Date of Delivery: 12/09/25 ROS: Otherwise Noted in HPI Current Outpatient Medications: Calcium 200 MG tablet, Take 1 tablet by mouth Daily., Disp: , Rfl: CHOLINE PO, Take 500 mg by mouth Daily., Disp: , Rfl: co-enzyme Q-10 30 MG capsule, Take 200 mg by mouth Daily., Disp: , Rfl: Cyanocobalamin (B-12) 1000 MCG tablet, Take 1 tablet by mouth Daily., Disp: , Rfl: [place] 3 1200 MG capsule, Take 1 tablet by mouth Daily., Disp: , Rfl: Vit-Fe Fumarate-FA ( vitamin 27-0.8) 27-0.8 MG tablet tablet, Take 1 tablet by mouth Daily., Disp: , Rfl: Vitamin D, Cholecalciferol, (CHOLECALCIFEROL) 10 MCG (400 UNIT) tablet, Take 1 tablet by mouth Daily., Disp: , Rfl: Vitamin E 200 units tablet, Take 200 Units by mouth Daily., Disp: , Rfl: Objective Vital Signs There were no vitals taken for this visit. Estimated body mass index is 26.85 kg/m?? as calculated from the following: Height as of 07/24/25: 171.5 cm (67.5 ). Weight as of 07/24/25: 78.9 kg (174 lb). Ultrasound Impression: See Viewpoint Assessment and Plan Taylor Lilly is a 40 y.o. 26w5d who presents today for AMA and IVF Diagnoses and all orders for this visit: 1. resulting from in vitro fertilization in second trimester (Primary) Assessment & Plan: Patient presents for follow-up ultrasound and echo secondary to IVF . We discussed that IVF pregnancies are an increased risk of cardiac abnormalities and therefore echo was performed. We discussed the limitations of echo including diagnosing valvular abnormalities and small VSDs. Today's ultrasound shows normal growth and normal echo. We discussed the need for growth ultrasound at 32 weeks. Orders: - [facility] [place]; Future 2. Advanced maternal age, primigravida, antepartum Follow Up 32 weeks I spent 10 minutes caring for the patient on the [...] other procedures such as amniocentesis or CVS. Mynor Byrd MD, FACOG Maternal Medicine, [facility] documented in this encounter Plan of Treatment Not on file documented as of this encounter Visit Diagnoses Diagnosis resulting from in vitro fertilization in second trimester- Primary Advanced maternal age, primigravida, antepartum Elderly primigravida, antepartum documented in this encounter Care Teams Mold Stamper Relationship Specialty Start Date End Date Provider, [place] [address] PCP - General 05/25/25 documented as of this encounter
--- OUTSIDE RECORDS SUMMARY | 2025-09-21 16:48 | XMS_ITS | Clinical Summary ---
Author Organization [facility] Address [address] [place] [address] Phone Care Team Providers Care Spout Tender Name Role Phone Yara Shaikh APRN Primary Care Provider [phone] Allergies No known active allergies Medications No known medications Active Problems Patient Care Coordination No te [...] of recurrent major depressive disor zak 04/30/2011 Estimated Date of Delivery Comme nts Yes 12/10/2025 Encounters Date Type Department Care Team Description 08/02/2025 [place] [facility] [facility] [address] [place] [address] Yara Shaikh APRN Other (Information Request for Worker's Comp ); Follow Up (Please refax paperwork); Patient Returning Call (Related to workers comp) 07/20/2025 4:20 PM EDT Office Visit [facility] [address] [place] [phone] Abdullahi Carrington MD Left shoulder pain, unspecified chronicity (Primary Dx) 07/04/2025 2:45 PM EDT Office [place] [facility] [place] [facility] [address] [place] [phone] Yara Shaikh, CHAIR INSPECTOR Annual physical exam (Primary Dx) from Last 3 Months Immunizations Immunization Administration Dates Next Due Hepatitis [...] 0.6 oz pur e alcohol) 1x/mo [facility] Utilities Answer Date Recorded In the past 12 months has Vendor Registry, gas, oil, or water [employer] threatened to shut off services in your [...] often do you attend [facility] or shinto services? More than 4 times per year [...] Date Recorded PHQ-2 Total Score 0 07/04/2025 [facility] [...] place to sleep or slept in a alf (including now)? No 02/02/2024 Sexually Active Control Partners Comments Yes Other-see comments Male currently Estimated Date of Delivery Comme nts Yes 12/10/2025 Sex and Gender Information Value Date Recorded Sex Assigned at Not on file Legal Sex Female 7:19 AM EDT Gender Identity Not on file Sexual Orientation Not on file Obstetrics History Para Term AB IAB SAB Ectopic Multiple Livin g Live Births 1 Date Outcome GA Total Labor Labor/2nd/3rd Weight Sex Type Anes PTL Zoie A1 A5 Name Clin Current Last Filed Vital Signs Vital Sign Reading Time Taken Comments Blood Pressure 117/77 07/20/2025 4:25 PM EDT Pulse 68 07/20/2025 4:25 PM EDT Temperature 36.9 C (98.4 F) 07/20/2025 4:25 PM EDT Respiratory Rate 20 07/20/2025 4:25 PM EDT Oxygen Saturation 98% 07/20/2025 4:25 PM EDT Inhaled Oxygen Concentration - - Weight 79.4 kg (175 lb) 07/20/2025 4:25 PM EDT Height 172.7 cm (5' 8 ) 07/04/2025 2:57 PM EDT Body Mass Index 26.61 07/04/2025 2:57 PM EDT Plan of Treatment Health Maintenance Due Date Last Done Comments HPV/Pap Cotest 02/05/2016 DTaP/TDaP/Td (7 - Td or Tdap) 07/21/2018 07/21/2008, 11/09/2002, 06/21/1991, Additional history exists COVID-19 Vaccine ( season) 2025 Influenza Vaccine (#1) 2025 RSV or 60+ (1 - Risk 1-dose series) 10/15/2025 Annual Wellness Exam 07/04/2026 07/04/2025, 05/18/20 15 Cervical Cancer Screening 10/14/2026 Pap Smear 10/14/2026 10/14/2023, 11/30, 04/30/2013 Hepatitis B Vaccine Completed 07/05/2003, 02/09/2003, [...] Negative for intraepithelial lesion or malignancy. us Historical Provider HEALTH MAINTENANCE Final Res ult SEP OFFICE from Last 3 Months or Most Recently Relevant to Health Maintenance [facility] Care Teams Spout Tender Relationship Specialty Start Date End Date Yara Shaikh APRN [employer] [place] [address] PCP - General Nurse Practitioner 07/03/25
--- OUTSIDE RECORDS SUMMARY | 2025-09-21 16:48 | XMS_ITS | Clinical Summary ---
Author Organization [facility] Address [address] [place] [address] Care Team Providers Care Coronary Care Unit Nurse Name Role Phone Provider, No Known Primary Care Provider Unavail able Allergies No known active allergies Medications co-enzyme Q-10 30 MG capsule Take 200 mg by mouth Daily. Active Vitamin E 200 units tablet Take 200 Units by mouth Daily. Active Cyanocobalamin (B-12) 1000 MCG tablet Take 1 tablet by mouth Daily. Active Vit-Fe Fumarate-FA ( vitamin 27-0.8) 27-0.8 MG tablet tablet Take 1 tablet by mouth Daily. Active Calcium 200 MG tablet Take 1 tablet by mouth Daily. Active Vitamin D, Cholecalciferol, (CHOLECALCIFEROL ) 10 MCG (400 UNIT) tablet Take 1 tablet by mouth Daily. Active CHOLINE PO Take 500 mg by mouth Daily. Active [place] 3 1200 MG capsule Take 1 tablet by mouth Daily. Active Active Problems Problem Noted Date Diagnosed Date Advanced maternal age, primigravida, antepartum 07/24/2025 Assessment & Plan (07/24/2025 2:55 PM EDT): S/p normal PGT. Anatomy today appears normal. - Follow-up scheduled in 4-6wks for a echo conceived through in vitro fertilizati on 07/24/2025 Assessment & Plan (09/07/2025 2:48 PM EDT): Patient presents for follow-up ultrasound and echo secondary to IVF . We discussed that IVF pregnancies are an increased risk of cardiac abnormalities and therefore echo was performed. We discussed the limitations of echo including diagnosing valvular abnormalities and small VSDs. Today's ultrasound shows normal growth and normal echo. We discussed the need for growth ultrasound at 32 weeks. Assessment & Plan (07/24/2025 2:55 PM EDT): - Echo scheduled in 4-6wks Estimated Date of Delivery Comme nts Yes 12/09/2025 Date entered alf or to episode creation Encounters Date Type Department Care Team Description 09/07/2025 2:15 PM EDT Office Visit [facility] MAT[facility] MEDICINE [address] [address] Mynor Byrd MD resulting from in vitro fertilization in second trimester (Primary Dx); Advanced maternal age, primigravida, antepartum 09/07/2025 2:03 PM EDT - 09/07/2025 11:59 PM EDT Hospital Encounter [facility] DIAG [facility] [address] [place] [address] Dang Fortune MD Advanced maternal age, primigravida, antepartum; resulting from in vitro fertilization, antepartum Discharge Disposition: Home or Self Care 09/07/2025 Travel 07/24/2025 2:00 PM EDT Office Visit [facility] MAT[facility]NAL MEDICINE [address] [phone] Dang Fortune MD Advanced maternal age, primigravida, antepartum (Primary Dx); resulting from in vitro fertilization, antepartum; 20 weeks gestation of 07/24/2025 1:51 PM EDT - 07/24/2025 11:59 PM EDT Hospital Encounter [facility] PER DIAG [facility] [address] [place] [address] Randy Melchor DO Advanced maternal age, primigravida, antepartum; Conceived by in vitro fertilization Discharge Disposition: Home or Self Care 07/24/2025 Travel from Last 3 Months Social History Tobacco Use Types Packs/Day Years [...] Mass Index 26.85 07/24/2025 2:12 PM EDT Plan of Treatment Health Maintenance Due Date Last Done Comments Annual Gynecologic Pelvic an d Breast Exam 1985 PAP SMEAR 2007 TDAP/TD VACCINES (3 - Td or Tdap) 07/21/2018 07/21/2008, 11/09/2002 ANNUAL PHYSICAL 05/25/2025 HEPATITIS C SCREENING 05/25/2025 INFLUENZA VACCINE 06/30/2025 RSV Vaccine - Adults (1 - Risk 1-dose series) 10/14/2025 Pneumococcal Vaccine 0-49 Aged Out No longer eligible based on patient's age to complete this topic Procedures Procedure Name Priority Date/Time Associated Diagnosis Comments [facility] Routine 09/07/2025 3:02 PM EDT Advanced maternal age, primigravida, antepartum resulting from in vitro fertilization, antepartum [facility] Routine 07/24/2025 2:49 PM EDT Advanced maternal age, primigravida, antepartum Conceived by in vitro fertilization from Last 3 Months Results * [facility] (09/07/2025 3:02 PM EDT) Only the most recent of2 resultswithin the time period is included. Anatomical Region Laterality Modality Ultrasound 09/07/2025 2:19 PM EDT Narrative 09/07/2025 3:06 PM EDT PAT NAME: ALEX ÁLVAREZ [facility] REC#: [id number] DA: [id number] PAT GEND: F PAT TYPE: O EXAM SHIRLENE: [id number] REF PHYS RANDY MELCHOR Comparison Studies The [...] EFW (oz) 7 oz EFW by: Hadlock ([id number]-DE-[id number]-FL) Extended Cav. septi pel. tr 5.4 mm Bacon De Rinder 5.8 mm CM 6.9 mm 64% Nicolaides [...] IVC: Appears Normal 3-vessel view: Appears normal 3-awatjc-nfonjho view: Appears normal Cardiac axis: Normal Stomach: Normal Bladder: Normal/ Gender: Concealed Wants to know gender: No Echocardiogram 2D Echo (Qualitatively) 4-chamber view: Appears normal LVOT view: Appears normal RVOT view: Appears normal 3-vessel view: Appears normal 5-vgvgoy-bmvzelk view: Appears normal Aortic arch view: Appears [...] 20.0 mm TV diast 4.11 mm <1% Persley MV diast 3.68 mm <1% Presley PA [...] (declined follow up here). Coding ======= Description: 46063-71 Follow Up Ultrasound Description: 99103-36 Echo 2D, heart - initial Description: 74741-36 Doppler echo color flow Industrial Engineer: Adriana Rodriguez RDMS Physician: Mynor Byrd MD, FACOG Electronically signed by: Mynor Byrd MD, FACOG at: 15:06 Procedure Note Mynor Byrd MD - 09/07/2025 PAT NAME: ALEX ÁLVAREZ [facility] REC#: [id number] DA: [id number] PAT GEND: F PAT TYPE: O EXAM SHIRLENE: [id number] REF PHYS RANDY MELCHOR Comparison Studies The findings of this study are compared to the prior ultrasound studydated 07/24/25. Patient Status Outpatient Indication ======== IVF , AMA-primipara, Maternal Assessment Ffigpf667 cm Height (ft)5 ft Height (in)7 in Svpuzt85 kg Weight (lb)180 lb BMI27.92 kg/m Method ======= Transabdominal ultrasound examination ========= Griffiths . Number of fetuses: 1 Dating ====== GA by prior pkbvqtjduo22 w + 5 d PHILL by prior assessment:12/09/2025 Ultrasound examination on:09/07/2025 GA by U/S based upon:AC, BPD, Femur, HC GA by U/S27 w + 6 d PIHLL by U/S:12/01/2025 Method of dating:Restore dating from previous exam Previous dating:based on stated PHILL, selected on 07/24/2025 Agreed PHILL of previous datin12/10/2025 Assigned:based on stated PHILL, selected on 07/24/2025 Assigned GA26 w + 4 d Assigned PHILL:12/10/2025 hufzno427 d Biometry Standard BPD70.1 mm 28w 1d 87% Hadlock OFD91.0 mm 29w 2d 99% Lovely HC259.4 mm 28w 1d 77% Hadlock Cerebellum tr32.4 mm 27w 4d 88% Hill AC228.0 mm 27w 1d 61% Hadlock Femur52.6 mm 28w 0d 77% Hadlock Ctlbuoy92.2 mm 28w 2d 90% Lovely HC / AC1.14 EFW1,102 g 27w 2d 79% Hadlock EFW (lb)2 lb EFW (oz)7 oz EFW by:Hadlock ([id number]-FL) Extended Cav. septi pel. tr5.4 mm Vp5.8 mm CM6.9 mm 64% Nicolaides Head / Face / Neck Cephalic index0.77 32% Nicolaides Thorax / Lungs Thoracic lfor307.6 mm 68% [place] Thoracic area31.0 cm ThC / AC0.87 Heart / Great Vessels Cardiac axis40 Cardiac domi433.6 mm Cardiac area9.2 cm CC / ThC0.54 CA / ThA0.30 PA main5.42 mm Rt PA branch3.35 mm 68% Presley Lt PA branch3.91 mm 92% Presley Ao asc4.51 mm Ao isthmus4.2 mm 70% Presley Ao desc4.12 mm McGoon Index mod.1.8 PA main / Ao asc1.20 IVC3.67 mm SVC3.31 mm Extremities / Bony Struc FL / BPD0.75 FL / HC0.20 FL / AC0.23 Other Structures WXZ055 bpm General Evaluation Cardiac activity present. FHR [...] SVC:Appears Normal IVC:Appears Normal 3-vessel view:Appears normal 3-ydwwrk-rkjfvtz view:Appears normal Cardiac axis:Normal Stomach:Normal Bladder:Normal/ Gender: Concealed Wants to know gender: No Echocardiogram 2D Echo (Qualitatively) 4-chamber view:Appears normal LVOT view:Appears normal RVOT view:Appears normal 3-vessel view:Appears normal 2-riblqm-twfyaxz view:Appears normal Aortic arch view:Appears normal Ductal [...] pulmonary artery B and M-Mode Measurements Thoracic uauy513.6 mm 68% [place] Thoracic area31.0 cm ThC / AC0.87 Cardiac axis40 Cardiac stzb939.6 mm Cardiac area9.2 cm CC / ThC0.54 [...] office (declined follow up here). Coding ======= Description:22965-58 Follow Up Ultrasound Description:16013-64 Echo 2D, heart - initial Description:38768-34 Doppler echo color flow Industrial Engineer: Adriana Rodriguez RDAR Physician: Mynor Byrd MD, FACOG Electronically signed by: Mynor Byrd MD, FACOG at: 15:06 us Dang Fortune MD [facility] ORDERABLES Final Res ult from Last 3 Months Insurance [employer] Care Teams Coronary Care Unit Nurse Relationship Specialty Start Date End Date Provider, [place] [address] PCP - General 05/25/25
--- OUTSIDE RECORDS SUMMARY | 2025-09-21 16:48 | XMS_ITS | Encounter Summary ---
[facility] Address [address] [place] [id number] Care Team Providers Care Displayer Merchandise Name Role Phone Provider, No Known Primary Care Provider Unavail able Encounter Details Date Type Department Care Team (Latest Contact Info) Description 09/07/2025 Travel Social History Tobacco Use Types Packs/Day Years [...] on file documented as of this encounter Plan of Treatment Not on file documented as of this encounter Visit Diagnoses Not on filedocumented in this encounter Care Teams Displayer Merchandise Relationship Specialty Start Date End Date Provider, No Known [facility] [place] [address] PCP - General 05/25/25 documented as of this encounter
--- OUTSIDE RECORDS SUMMARY | 2025-09-21 16:49 | XMS_ITS | Encounter Summary ---
Author Organization [place] [address] Care Team Providers Care Oil Prospecting Observer Name Role Phone Yara Shaikh APRN Primary Care Provider [phone] Reason for Visit * Reason Onset Date Comments Other 08/02/2025 Information Requ est for Worker's Comp Follow Up 08/02/2025 Please refax pap erwork Patient Returning Call 08/02/2025 Related t o workers comp Encounter Details Date Type Department Care Team (Late Contact Info) Description 08/02/2025 Telephone SEP Jam [address] [place] [address] Yara Shaikh, [employer] [address] [place] [address] Other (Information Request for Worker's Comp ); Follow Up (Please refax paperwork); Patient Returning Call (Related to workers comp) Social History Tobacco Use Types Packs/Day Years Used Date Smoking Tobacco: Former Cigarettes 0.3 12.7 0 11/30/1999 - 07/31/2012 Passive Smoke Exposure: Past Smokeless Tobacco: Never Alcohol Use Standard Drinks/Week Comments Not Currently 0 (1 standard drink = 0.6 oz pur e alcohol) 1x/mo [facility] Utilities Answer Date Recorded In the past 12 months has [place], gas, oil, or water company threatened to [...] week 02/02/2024 How often do you attend chur or mormonism services? More than 4 times per year 02/02/2024 Do you belong to any clubs o r organizations such as restoration groups, unions, fraternal or athletic groups, or [...] Date Recorded PHQ-2 Total Score 0 07/04/2025 [facility] - Occupational [...] Entry Date Author No 01/19/2024 2:36 PM PENNY RobertaMihai LPN documented in this encounter Miscellaneous Notes * Telephone Encounter - Lynn Murphy MA - 08/08/2025 3:48 PM EDT Select the most appropriate reason for this telephone message: Patient Returning Call Reason for call: To confirm if worker comp forms were faxed. Information relayed to patient: Leilani Ren RMA 08/04/25 2:13 PM Note Re-faxed at 2:12 pm Patient has additional questions: No Further follow-up needed? no Return Method of Communication: Phone Call Additional Information: FYI-pt aware and verbalized understanding. * Telephone Encounter - Leilani Ren RMA - 08/04/2025 2:12 PM EDT Re-faxed at 2:12 pm * Telephone Encounter - Roselyn Del Rio, Clerical Staff - 08/04/2025 1:47 PM EDT Select the most appropriate reason for this telephone message: Follow Up Follow Up Who is Calling:Insurance Company/Law Office Tara Crow (include office company and caller's name) What is the caller following up on (make sure to reference any prior documentation/encounter):caller was checking on the status of the paperwork that was requested. I informed caller that paperwork was faxed on 08/02/25, however, caller states that she has not received the paperwork and is requestingfor it to be faxed again. Fax number verified as [phone] attn Tara Rivas Further follow-up needed?:Yes Return Method of Communication:Phone call Additional Information: Please Advise Patient/Caller, thank you. * Telephone Encounter - Leilani Ren RMA - 08/02/2025 12:56 PM EDT Printed and faxed * Telephone Encounter - Lynn Murphy MA - 08/02/2025 12:24 PM EDT Select the most appropriate reason for this telephone message: Other Who is calling (name & relationship to patient if not the patient): Patient What is needed OR why are they calling: Pt [facility] that they have not received a letter stating she was seen on 07/20/25. Pt also states they are requesting a PT referral for review. Pt states this information will need faxed to Tara Tong [phone], and notes claim # [id number]. When is this needed by: denisse Where does this information need to go: Information is needing faxed to [employer]. Pt reports filling out a record release for for [facility] to request the following information. Return Method of Communication: Phone Call Additional information:Please advise pt via phone call when the following information has been faxed, thank you. documented in this encounter Plan of Treatment [...] on filedocumented in this encounter Care Teams Oil Prospecting Observer Relationship Specialty Start Date End Date Yara Shaikh APRN [address] [place], [place] [address] PCP - General Nurse Practitioner 07/03/25 documented as of this encounter
--- OUTSIDE RECORDS SUMMARY | 2025-09-21 16:49 | XMS_ITS | Clinical Summary ---
Author Organization [facility] Address [address] [place] [address] Care Team Providers Care Filling Machine Operator Name Role Phone Pcp, No Primary Care Provider [phone] Source Comments This information has been disclosed [...] therelease of HIV test results or diagnoses. 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 [x] Type & Screen (09/23/22 from [facility] records) [x] ABO/ABS (02/19/2024) [x] CBC (11/27/2023) [x] CMP (11/27/2023) [x] AMH (02/12/2024-7.72) [x] Prolactin 13.8 (11/27/2023) [x] TSH: 1.24 Free T4: 1.12 (11/27/2023) [x] HgbA1c (02/19/2024-5.1) [x] Rubella/varicella (02/19/2024) [x] STDs (02/19/2024) [x] Cavity assessment (Waived per Dr. Shelley SIS 10/29/22 at [facility] wn) [x] TT 03/11/2024 (Depth: 7.5 [...] Done Comments Hepatitis C Screening (Sabrat) 1986 Alcohol Misuse Screening 02/05/2004 Depression Screening 02/05/2004 Cervical Cancer Screening/Pa p Smear (MyChart) 02/05/2016 Immunization: DTaP/Tdap/Td ( 3 - Td or Tdap) 07/21/2018 07/21/2008, 11/09/2002 Immunization: COVID-19 ( season) 2025 Immunization: Influenza (MyChart) (#1) 2025 Immunization: Hepatitis B Completed 2002, 02/09/2003, [...] Relevant to Health Maintenance Insurance Care Teams Filling Machine Operator Relationship Specialty Start Date End Date Pcp, No No Address PCP - General 01/04/24
--- OUTSIDE RECORDS SUMMARY | 2025-09-21 16:49 | XMS_ITS | Encounter Summary ---
Author Organization [facility] Address [address] [place] [id number] Care Team Providers Care Wet Machine Operator Name Role Phone Provider, No Known Primary Care Provider Unavail able Encounter Details Date Type Department Care Team (Latest Contact Info) Description 07/24/2025 Travel Social History Tobacco Use Types Packs/Day [...] on filedocumented in this encounter Care Teams Wet Machine Operator Relationship Specialty Start Date End Date Provider, No Known [facility] [place] [address] PCP - General 05/25/25 documented as of this encounter
[2025-09-21 17:31] LABS: Hematocrit 36.1 % (37.0-47.0); Hemoglobin 12.1 g/dL (12.2-16.2); Immature Granulocytes % 0.7 %; Mean Corpuscular HGB Conc 33.5 g/dL (31.8-35.4); Mean Corpuscular Hemoglobin 32.2 pg (27.0-31.2); Mean Corpuscular Volume 96.0 fl (81-99); Nucleated Red Blood Cells % 0 %; Platelet Count 336 K/mm3 (142-424); Red Blood Count 3.76 M/mm3 (4.20-5.40); Red Cell Distribution Width-SD 42.4 fL; White Blood Count 11.3 K/mm3 (4.8-10.8)
[2025-09-22 07:27] LABS: RPR W/RFX Titers Nonreactive (Nonreactive)
== END 2025-09-21 23:59 | disposition home or self-care (01) ==
LOC: LAB 16:46
PROVIDERS: Visit Provider Obstetrics & Gynecology
DX: O09.519 Supervision of elderly primigravida, unspecified trimester (principal); O09.819 Supervision of pregnancy resulting from assisted reproductive technology, unspecified trimester; Z3A.00 Weeks of gestation of pregnancy not specified
CPT/HCPCS: 36415; 85025; 86592

== ENCOUNTER 2025-11-02 14:55 | Outpatient (CLI) | payer BC, SELFPAY ==
--- NOTE | 2025-11-02 15:00 | US_ITS ---
PROCEDURE: US OB BIOPHYSICAL PROFILE CLINICAL INDICATION: BPP/Growth COMPARISON: US US OB TRANSVAGINAL from 05/05/2025 US US OB TRANSVAGINAL from 05/10/2025 US US OB <= 14 WEEKS FETUS from 05/30/2025 FINDINGS: Transabdominal sonographic images of the uterus were obtained. From her established due date she is 34weeks 4days. The following parameters are obtained: Viable Fetus in the BREECH presentation with an anterior placenta grade 2. The cervix measures 3.40 cm Measurements: heart Rate = 135bpm Average ultrasound age is 37weeks 2days Estimated weight 2,917g, 6 lb 7 oz BPD = 37weeks 6days, >98 percentile HC = 39weeks 6days, >98 percentile AC = 36weeks 2days, 92 percent FL = 34weeks 5days, 44 percentile HC/AC is 1.07 FL/BPD is 0.72 FL/AC is 0.21 90 percentile Amniotic fluid index: 13.5cm, MVP 4.77 cm Qualitative AFV:2 Breathing movements: 2 Gross Body Movements: 2 Tone: 2 Biophysical profile score: 8 No obvious anomalies evident.Kidneys, stomach, bladder, four-chamber heart, three-vessel cord appear normal. IMPRESSION: 1. Viable fetus in the BREECH PRESENTATION with an anterior placenta grade 2. 2. The fluid is within normal limits with an amniotic fluid index 13.5 cm, MVP 4.77 cm. 3. Biophysical profile is 8/8 with good breathing movement and movement seen. 4. Fetus is large for gestational age at the 90th percentile. The head circumference is 5 weeks ahead and the abdominal circumference is 2 weeks ahead. 5. Limited anatomical scan appears normal. Dictated by: Niko Grissom MD 11/02/2025 16:30 Niko Grissom MD in OV 11/02/2025 16:30
== END 2025-11-02 23:59 | disposition home or self-care (01) ==
LOC: RAD 14:56
PROVIDERS: PCP Obstetrics & Gynecology; Visit Provider Obstetrics & Gynecology
DX: O36.63X0 Maternal care for excessive fetal growth, third trimester, not applicable or unspecified (principal); O32.1XX0 Maternal care for breech presentation, not applicable or unspecified; O16.3 Unspecified maternal hypertension, third trimester; O24.419 Gestational diabetes mellitus in pregnancy, unspecified control; O09.513 Supervision of elderly primigravida, third trimester; O09.813 Supervision of pregnancy resulting from assisted reproductive technology, third trimester; Z3A.34 34 weeks gestation of pregnancy
CPT/HCPCS: 76816; 76819

== ENCOUNTER 2025-11-09 16:55 | Outpatient (CLI) | payer BC, SELFPAY ==
[2025-11-09 17:15] VITALS: BMI 29.7
[2025-11-09 17:25] VITALS: BP 133/83; PULSE 66; RESP 18; TEMP 36.6; O2SAT 100; BMI 65.7
== END 2025-11-09 18:15 | disposition home or self-care (01) ==
LOC: LAB 16:57 → OB 17:00
PROVIDERS: PCP Obstetrics & Gynecology; Visit Provider Obstetrics & Gynecology
DX: Z34.03 Encounter for supervision of normal first pregnancy, third trimester (principal); Z3A.35 35 weeks gestation of pregnancy
CPT/HCPCS: 86403; 99212

== ENCOUNTER 2025-11-29 15:18 | Outpatient (CLI) | payer BC, SELFPAY ==
--- OUTSIDE RECORDS SUMMARY | 2025-11-29 15:20 | XMS_ITS | Clinical Summary ---
Author Organization [facility] Address [address] [place] [address] Phone Care Team Providers Care School Cafeteria Head Cook Name Role Phone Yara Shaikh APRN Primary Care Provider [phone] Allergies No known active allergies Medications No [...] Date of Delivery Comme nts Yes 12/10/2025 Immunizations Immunization Administration Dates Next Due Hepatitis [...] alcohol) 1x/mo [facility] Utilities Answer Date Recorded In the past 12 months has th e electric, gas, oil, or water company [...] week 02/02/2024 How often do you attend [facility] or oriental orthodox services? More than 4 times per year 02/02/2024 Do you belong to any clubs o r organizations such as sabianist groups, unions, fraternal or athletic groups, or [...] Date Recorded PHQ-2 Total Score 0 07/04/2025 [facility] Occupat ional Health - Occupational Stress [...] place to sleep or slept in a long-term (including now)? No 02/02/2024 Sexually Active Control [...] ( season) 2025 Influenza Vaccine (#1) 2025 Annual Wellness Exam 07/04/2026 07/04/2025, 05/18/20 15 Cervical Cancer Screening 10/14/2026 Pap Smear 10/14/2026 10/14/2023, 11/30, 04/30/2013 Hepatitis B Vaccine Completed 07/05/2003, 02/09/2003, 11/09/2002 Meningococcal B Vaccine Aged Out No l onger eligible based on patient's age to complete this topic Pneumococcal Vaccine 0-49 Aged Out No longer eligible based on patient's age to complete this topic RSV or 60+ (No Doses Required) Completed Goals Goal Patient Goal Type Associated Problems Recent Progress Patient-Stated? Author Maintain a healthy diet, exercise regularly and maintain an ideal body weight General No Elvia Morales MD Stay Tobacco Free Lifestyle No Elvia Morales MD Procedures Procedure Name Priority Date/Time Associated Diagnosis Comments HM PAP SMEAR Routine 12/13/2020 from Last 3 Months or Most Recently Relevant to Health Maintenance Results * HM PAP SMEAR (12/13/2020) 12/13/2020 Impressions SEP OFFICE - 12/13/2020 Negative for intraepithelial lesion or malignancy. us Historical Provider HEALTH MAINTENANCE Final Res ult SEP OFFICE from Last 3 Months or Most Recently Relevant to Health Maintenance Insurance [facility] Care Teams School Cafeteria Head Cook Relationship Specialty Start Date End Date Yara Shaikh APRN [address] [place] [address] PCP - General Nurse Practitioner 07/03/25
--- OUTSIDE RECORDS SUMMARY | 2025-11-29 15:20 | XMS_ITS | Clinical Summary ---
Author Organization [facility] Address [address] [place] [address] Care Team Providers Care Sewer Digger Name Role Phone Provider, No Known Primary [...] Take 500 mg by mouth Daily. Active Mounds 3 1200 MG capsule Take 1 tablet [...] Description 09/07/2025 2:15 PM EDT Office Visit [facility] [address] [facility] [address] [place] [address] Mynor Byrd MD resulting from in vitro fertilization in second trimester (Primary Dx); Advanced maternal age, primigravida, antepartum 09/07/2025 2:03 PM EDT - 09/07/2025 11:59 PM EDT Hospital Encounter [facility] [address] [facility] [place] [address] Dang Fortune MD Advanced maternal age, primigravida, antepartum; resulting from in vitro fertilization, antepartum Discharge Disposition: Home or Self Care 09/07/2025 Travel from Last 3 Months Social History [...] HEPATITIS C SCREENING 05/25/2025 INFLUENZA VACCINE 06/30/2025 Pneumococcal Vaccine 0-49 Aged Out No longer eligible based on patient's age to complete this topic RSV Vaccine - Adults (No Doses Required) Completed Procedures Procedure Name Priority Date/Time Associated Diagnosis Comments [facility] Routine 09/07/2025 3:02 PM EDT Advanced maternal age, primigravida, antepartum resulting from in vitro fertilization, antepartum from Last 3 Months Results * [facility] (09/07/2025 3:02 PM EDT) Anatomical Region Laterality Modality Ultrasound 09/07/2025 2:19 PM EDT Narrative 09/07/2025 3:06 PM EDT PAT NAME: ALEX ÁLVAREZ [facility] REC#: [id number] DA: [id number] PAT GEND: F PAT TYPE: O EXAM SHIRLENE: [id number] REF PHYS RANDY BETHEA Comparison Studies The [...] EFW (oz) 7 oz EFW by: Hadlock ([id number]) Extended Cav. septi pel. tr 5.4 mm Lean Manufacturing Engineer 5.8 mm CM 6.9 mm 64% Nicolaides [...] IVC: Appears Normal 3-vessel view: Appears normal 3-qrdgbp-dhbaqbo view: Appears normal Cardiac axis: Normal Stomach: Normal Bladder: Normal/ Gender: Concealed Wants to know gender: No Echocardiogram 2D Echo (Qualitatively) 4-chamber view: Appears normal LVOT view: Appears normal RVOT view: Appears normal 3-vessel view: Appears normal 0-unmxbh-rcfhmkh view: Appears normal Aortic arch view: Appears [...] (declined follow up here). Coding ======= Description: 47496-49 Follow Up Ultrasound Description: 27707-01 Echo 2D, heart - initial Description: 50853-34 Doppler echo color flow Application Support Technician: Adriana Rodriguez RDMS Physician: Mynor Byrd MD, FACOG Electronically signed by: Mynor Byrd MD, FACOG at: 15:06 Procedure Note Mynor Byrd MD - 09/07/2025 PAT NAME: ALEX ÁLVAREZ MED REC#: [id number] DA: [id number] PAT GEND: F PAT TYPE: O EXAM SHIRLENE: [id number] REF PHYS RANDY BETHEA Comparison Studies The findings of this study are compared to the prior ultrasound studydated 07/24/25. Patient Status Outpatient Indication ======== IVF , AMA-primipara, Maternal Assessment Qqumzx079 cm Height (ft)5 ft Height (in)7 in Fhuwew40 kg Weight (lb)180 lb BMI27.92 kg/m Method ======= Transabdominal ultrasound examination ========= Griffiths . Number of fetuses: 1 Dating ====== GA by prior dtjcyvlqxd53 w + 5 d PHILL by prior [...] Hadlock Femur52.6 mm 28w 0d 77% Hadlock Anicchq98.2 mm 28w 2d 90% Lovely HC / AC1.14 EFW1,102 g 27w 2d 79% Hadlock EFW (lb)2 lb EFW (oz)7 oz EFW by:Hadlock ([id number]) Extended Cav. septi pel. tr5.4 mm Vp5.8 mm CM6.9 mm 64% Nicolaides Head / Face / Neck Cephalic index0.77 32% Nicolaides Thorax / Lungs Thoracic rcjl225.6 mm 68% [place] Thoracic area31.0 cm ThC / AC0.87 Heart / Great Vessels Cardiac axis40 Cardiac oryj889.6 mm Cardiac area9.2 cm CC / ThC0.54 CA / ThA0.30 PA main5.42 mm Rt PA branch3.35 mm 68% Presley Lt PA branch3.91 mm 92% Presley Ao asc4.51 mm Ao isthmus4.2 mm 70% Presley Ao desc4.12 mm McGoon Index mod.1.8 PA main / Ao asc1.20 IVC3.67 mm SVC3.31 mm Extremities / Bony Struc FL / BPD0.75 FL / HC0.20 FL / AC0.23 Other Structures UHC466 bpm General Evaluation Cardiac activity present. FHR [...] SVC:Appears Normal IVC:Appears Normal 3-vessel view:Appears normal 8-kczmbd-coybbmx view:Appears normal Cardiac axis:Normal Stomach:Normal Bladder:Normal/ Gender: Concealed Wants to know gender: No Echocardiogram 2D Echo (Qualitatively) 4-chamber view:Appears normal LVOT view:Appears normal RVOT view:Appears normal 3-vessel view:Appears normal 1-ttrnwz-ilvwzhq view:Appears normal Aortic arch view:Appears normal Ductal [...] pulmonary artery B and M-Mode Measurements Thoracic flam144.6 mm 68% [place] Thoracic area31.0 cm ThC / AC0.87 Cardiac axis40 Cardiac kusr482.6 mm Cardiac area9.2 cm CC / ThC0.54 [...] office (declined follow up here). Coding ======= Description:22022-31 Follow Up Ultrasound Description:20217-29 Echo 2D, heart - initial Description:07266-89 Doppler echo color flow Application Support Technician: Adriana Rodriguez RDMS Physician: Mynor Byrd MD, FACOG Electronically signed by: Mynor Byrd MD, FACOG at: 15:06 us Dang Fortune MD IMG US ORDERABLES Final Res ult from Last 3 Months Insurance [employer] Care Teams Sewer Digger Relationship Specialty Start Date End Date Provider, No Known [facility] [address] PCP - General 05/25/25
--- OUTSIDE RECORDS SUMMARY | 2025-11-29 15:20 | XMS_ITS | Clinical Summary ---
Author Organization [facility] Address [address] [place] [address] Care Team Providers Care Yarn Salvager Name Role Phone Pcp, No Primary Care Provider [phone] Source Comments This information has been disclosed [...] therelease of HIV test results or diagnoses. 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 [x] Type & Screen (09/23/22 from [facility] records) [x] ABO/ABS (02/19/2024) [x] CBC (11/27/2023) [x] CMP (11/27/2023) [x] AMH (02/12/2024-7.72) [x] Prolactin 13.8 (11/27/2023) [x] TSH: 1.24 Free T4: 1.12 (11/27/2023) [x] HgbA1c (02/19/2024-5.1) [x] Rubella/varicella (02/19/2024) [x] STDs (02/19/2024) [x] Cavity assessment (Waived per Dr. Shelley SIS 10/29/22 at [facility] wn) [x] TT 03/11/2024 (Depth: 7.5 [...] Done Comments Hepatitis C Screening (Sabrat) 1986 Immunization: COVID-19 (#1) 1991 Alcohol Misuse Screening 02/05/2004 Depression Screening 02/05/2004 Cervical Cancer Screening/Pa p Smear (MyChart) 02/05/2016 Immunization: DTaP/Tdap/Td ( 3 - Td or Tdap) 07/21/2018 07/21/2008, 11/09/2002 Immunization: Influenza (MyChart) (#1) 2025 Immunization: Hepatitis [...] Relevant to Health Maintenance Insurance Care Teams Yarn Salvager Relationship Specialty Start Date End Date Pcp, No No Address PCP - General 01/04/24
--- NOTE | 2025-11-29 15:30 | US_ITS ---
PROCEDURE: US OB BIOPHYSICAL PROFILE CLINICAL INDICATION: BPP/Growth COMPARISON: US US OB TRANSVAGINAL from 05/10/2025 US US OB <= 14 WEEKS FETUS from 05/30/2025 US US OB BIOPHYSICAL PROFILE from 11/02/2025 FINDINGS: Transabdominal sonographic images of the uterus were obtained. From her established due date she is 38weeks 3days. The following parameters are obtained: Viable Fetus in the BREECH presentation with an anterior placenta grade 2. Average ultrasound age is 39weeks 4days Estimated weight 4,022g, 8 lb 14 oz Measurements: heart Rate = 133bpm BPD = 41weeks 0 days, >98 percentile HC = , >98 percentile AC = 40weeks 1day, >98 percentile FL = 37weeks 4days, 32 percentile HC/AC is 1.03 FL/BPD is 0.74 FL/AC is 0.2 95 percentile Amniotic fluid index: 17.0cm, MVP 5.36 cm. There is particulate matter within the amniotic fluid. Qualitative AFV:2 Breathing movements: 2 Gross Body Movements: 2 Tone: 2 Biophysical profile score: 8 No obvious anomalies evident.Kidneys, bladder, four-chamber heart, three-vessel cord appear normal. The stomach is distended and contains some internal debris. IMPRESSION: 1. Viable fetus in the BREECH presentation with an anterior placenta grade 2. 2. Fluid is within normal limits with an amniotic fluid index 17.0 cm, MVP 5.36 cm. 3. There is particulate matter within the amniotic fluid. 4. Biophysical profile is 8/8 with good breathing movement and movement seen. 5. There has been good interval growth with the fetus 95th percentile. The fetus is symmetrically large for gestational age. 6. The stomach appears distended and contains internal debris. 7. The rest of the limited anatomical scan appears normal. Dictated by: Niko Grissom MD 11/30/2025 07:55 Niko Grissom MD in OV 11/30/2025 07:55
== END 2025-11-29 23:59 | disposition home or self-care (01) ==
LOC: RAD 15:18
PROVIDERS: PCP Obstetrics & Gynecology; Visit Provider Obstetrics & Gynecology
DX: O32.1XX0 Maternal care for breech presentation, not applicable or unspecified (principal); O28.3 Abnormal ultrasonic finding on antenatal screening of mother; O36.63X0 Maternal care for excessive fetal growth, third trimester, not applicable or unspecified; O09.513 Supervision of elderly primigravida, third trimester; O09.813 Supervision of pregnancy resulting from assisted reproductive technology, third trimester; O24.419 Gestational diabetes mellitus in pregnancy, unspecified control; O13.3 Gestational [pregnancy-induced] hypertension without significant proteinuria, third trimester; Z3A.38 38 weeks gestation of pregnancy
CPT/HCPCS: 76816; 76819